=== PATIENT | male | born 1960 | race Caucasian/White ===

== ENCOUNTER 2017-07-22 15:50 | Emergency (ER) | payer OTHER ==
[~2017-07-22] VITALS: Ht 177.8 cm; Wt 90.7 kg
--- OUTSIDE RECORDS SUMMARY | 2017-07-22 15:56 | XMS REPORT ---
Author Author HILARIO SABINA Organization [facility] [place] Address [address] [place] [address] Care Team Providers Care Manager Process Name Role Phone CHATA RICHE Unavailable PROBLEMS Type Condition ICD9-CM Code IIH70-LN Code Onset Dates Condition Status SNOMED Code Problem Dental caries, unspecified K02.9 Active 98481018 Problem Establishing care with new doctor, encounter for Z71.89 Active 271306076 Problem Glucosuria R81 Active 31957027 Assessment Primary insomnia F51.01 Jul, Active 7938529 Assessment Essential hypertension I10 Jul, Active 50950011 Problem Essential hypertension I10 Active 83475724 Problem Alcoholism F10.20 Active 1574224 Problem Chronic obstructive pulmonary disease, unspecified COPD type J44.9 Active 24778723 Problem Chronic pain syndrome G89.4 Active 991649952 Problem Mild depression F32.0 Active 818087034 Problem Mild intermittent asthma without complication J45.20 Active 253645835 ALLERGIES Substance Reaction Event Type Date Status N.K.D.A. Unknown Non Drug Allergy Jul, Unknown SOCIAL HISTORY No smoking Hx information available PLAN OF CARE VITAL SIGNS Height 68.0 in 2016-07-07 Weight 200.7 lbs 2016-07-07 Heart Rate 82 bpm 2016-07-07 Respiratory Rate 20 2016-07-07 BMI 30.51 kg/m2 2016-07-07 Blood pressure systolic 152 mmHg 2016-07-07 Blood pressure diastolic 92 mmHg 2016-07-07 MEDICATIONS Medication Instructions Dosage Frequency Start Date End Date Duration Status Proventil HFA 108 (90 Base) MCG/ACT Inhalation every 4 hrs 2 puffs as needed 4h May, Active Mirtazapine 30 MG Orally Once a day 1 tablet before bedtime in the evening 24h Jul, 30 day(s) Active Ibuprofen 800 MG Orally Three times a day 1 tablet 8h May, Active Lisinopril 10 mg Orally Once a day 1 tablet 24h May, Active Clindamycin HCl 300 MG Orally every 8 hrs 1 capsule 8h Jul,Jul 10 days Active RESULTS No Results PROCEDURES Procedure Date Ordered Related Diagnosis Body Site Office Visit, Est Pt., Level 4 Jul 07, 2016 IMMUNIZATIONS No Known Immunizations
--- OUTSIDE RECORDS SUMMARY | 2017-07-22 15:56 | XMS REPORT ---
Author SHAYAN Ye e[employer] Address Unknown Phone Unavailable Care Team Providers Care Adjunct Trainer Name Role Phone SHAYAN PALACIOS CP Unavailable Allergies, Adverse Reactions, Alerts Substance Reaction Event Type N.K.D.A. Info Not Available Non Drug Allergy Problems Problem Type Condition Code Onset Dates Condition Status Assessment Dental caries K02.9 Active Problem Glucosuria R81 Active Problem Dental caries, unspecified K02.9 Active Problem Alcoholism F10.20 Active Problem Mild depression F32.0 Active Problem Essential hypertension I10 Active Problem Chronic pain syndrome G89.4 Active Problem Establishing care with new doctor, encounter for Z71.89 Active Problem Mild intermittent asthma without complication J45.20 Active Problem Chronic obstructive pulmonary disease, unspecified COPD type J44.9 Active Medications Medication Code System Code Instructions Start Date End Date Status Dosage Mirtazapine [facility] [address]-80 30 MG Orally Once a day Jul 07, 2016 1 tablet before bedtime in the evening Ibuprofen [facility] [address]-77 800 MG Orally Three times a day Jun 09, 2016 1 tablet Proventil HFA [facility] [address]-93 108 (90 Base) MCG/ACT Inhalation every 4 hrs Jun 09, 2016 2 puffs as needed Lisinopril [facility] [address]-80 10 mg Orally Once a day Jun 09, 2016 1 tablet Procedures Procedure Coding System Code Date EXTRAC ERUPTED TOOTH/EXPOSED ROOT CPT-4 D7140 Aug 30, 2016 EXTRAC ERUPTED TOOTH/EXPOSED ROOT CPT-4 D7140 Aug 30, 2016 EXTRAC ERUPTED TOOTH/EXPOSED ROOT CPT-4 D7140 Aug 30, 2016 EXTRAC ERUPTED TOOTH/EXPOSED ROOT CPT-4 D7140 Aug 30, 2016 EXTRAC ERUPTED TOOTH/EXPOSED ROOT CPT-4 D7140 Aug 30, 2016 EXTRAC ERUPTED TOOTH/EXPOSED ROOT CPT-4 D7140 Aug 30, 2016 EXTRAC ERUPTED TOOTH/EXPOSED ROOT CPT-4 D7140 Aug 30, 2016 Vital Signs Date/Time: Aug 30, 2016 Blood Pressure Diastolic 94 mmHg Blood Pressure Systolic 169 mmHg Height 68.0 in Results No Known Results Summary Purpose eClinicalWorks Submission
--- OUTSIDE RECORDS SUMMARY | 2017-07-22 15:56 | XMS REPORT ---
Author SHAYAN Ye e[employer] Address Unknown Phone Unavailable Care Team Providers Care Steward/[employer] Name Role Phone SHAYAN PALACIOS CP Unavailable [...] disease, unspecified COPD type J44.9 Active Medications No Known Medications Procedures Procedure Coding System Code Date EXTRAC ERUPTED TOOTH/EXPOSED ROOT CPT-4 D7140 Aug 09, 2016 EXTRAC ERUPTED TOOTH/EXPOSED ROOT CPT-4 D7140 Aug 09, 2016 EXTRAC ERUPTED TOOTH/EXPOSED ROOT CPT-4 D7140 Aug 09, 2016 EXTRAC ERUPTED TOOTH/EXPOSED ROOT CPT-4 D7140 Aug 09, 2016 EXTRAC ERUPTED TOOTH/EXPOSED ROOT CPT-4 D7140 Aug 09, 2016 EXTRAC ERUPTED TOOTH/EXPOSED ROOT CPT-4 D7140 Aug 09, 2016 Vital Signs Date/Time: Aug 09, 2016 Blood Pressure Diastolic 116 mmHg Blood Pressure Systolic 165 mmHg Height 68.0 in Results No Known Results Summary Purpose eClinicalWorks Submission
--- OUTSIDE RECORDS SUMMARY | 2017-07-22 15:56 | XMS REPORT ---
Author Author SABINA RICH [facility] [place] eClinical[employer] Address Unknown Phone Unavailable Care Team Providers Care Sole Blacker Name Role Phone SABINA RICH CP Unavailable Allergies No Known Allergies Problems Problem Type Condition Code Onset Dates Condition Status Problem Glucosuria R81 Active Problem Dental caries, [...] Instructions Start Date End Date Status Dosage Ibuprofen [facility] [address]-08 800 MG Orally Three times a day Jun 09, 2016 1 tablet Results No Known Results Summary Purpose eClinicalWorks Submission
--- OUTSIDE RECORDS SUMMARY | 2017-07-22 15:56 | XMS REPORT ---
Author Author SABINA RICH [facility] eClinicalWorks Address Unknown Phone Unavailable Care Team Providers Care Flame Gouger Name Role Phone SABINA RICH CP Unavailable [...] Start Date End Date Status Dosage Ibuprofen [facility] [address]-03 200 mg Orally every 6 hrs 1 tablet as needed Results No Known Results Summary Purpose eClinicalWorks Submission
--- OUTSIDE RECORDS SUMMARY | 2017-07-22 15:56 | XMS REPORT ---
Author Author JOSE ANGEL REIS Organization [employer] Address Unknown Phone Unavailable Care Team Providers Care Computed Tomography Technician Name Role Phone JOSE ANGEL REIS CP Unavailable Allergies, Adverse Reactions, Alerts Substance Reaction Event Type N.K.D.A. Info Not Available Non Drug Allergy Problems Problem Type Condition Code Onset Dates Condition Status Assessment Acute upper respiratory infection, unspecified J06.9 Active Assessment Other viral agents as the cause of diseases classified elsewhere B97.89 Active Medications No Known Medications Procedures Procedure Coding System Code Date Office Visit, New Pt., Level 2 CPT-4 92705 Jun 01, 2016 Vital Signs Date/Time: Jun 01, 2016 Cardiac Monitoring Heart Rate 108 bpm Weight 197.5 lbs Height 68.0 in BMI 30.03 Index Blood Pressure Diastolic 90 mmHg Blood Pressure Systolic 145 mmHg Results No Known Results Summary Purpose eClinicalWorks Submission
[2017-07-22] MEDS ORDERED: ASPIRIN 81 MG CHEW (CHILDREN'S ASA) PO ONE (16:00)
[2017-07-22] MEDS ORDERED: RX-NITROGLYCERIN 0.4 MG TAB BTL 25'S SL PRN (16:00)
[2017-07-22] MEDS ORDERED: RT-ALBUTEROL/IPRATROPIUM 3 ML (DUONEB) VIAL INH ONE (16:00)
[2017-07-22] MEDS ORDERED: meTOprolol 5 MG/5 ML (LOPRESSOR) VIAL IV ONE (16:00)
--- NOTE | 2017-07-22 16:01 | ED Chest Pain ---
General Stated Complaint: CP/L ARM NUMBNESS/WEAKNESS Source: patient Exam Limitations: no limitations History of Present Illness Time seen by provider: 15:57 Initial Comments To ER with reports of chest pain since Tuesday worsened with activity and movement. He's also been very short of breath. He smokes a pack of cigarettes a day. He has not had a cough fevers or chills. No known cardiac history. Pain occasionally radiates down the left arm. Only rates pain at a 3 out of 10 right now. Timing/Duration: 1 week Severity/Quality: moderate Location: central Associated Symptoms: shortness of breath Allergies and Home Medications Allergies Coded Allergies: No Known Drug Allergies (Unverified , 07/22/17) Review of Systems Constitutional: see HPI EENTM: No Symptoms Reported Respiratory: See HPI, Shortness of Air, Wheezing Cardiovascular: See HPI, Chest Pain Gastrointestinal: No Symptoms Reported Genitourinary: No Symptoms Reported Musculoskeletal: no symptoms reported Skin: no symptoms reported Psychiatric/Neurological: No Symptoms Reported Endocrine: No Symptoms Reported Hematologic/Lymphatic: No Symptoms Reported Physical Exam Vital Signs Vital Sign - Last 12Hours 07/22/17 15:50 Temp 98.5 Pulse 115 Resp 20 B/P (MAP) 149/96 Pulse Ox 95 O2 Delivery Room Air Capillary Refill : General Appearance: No Apparent Distress, WD/WN HEENT: PERRL/EOMI, TMs Normal Neck: Full Range of Motion, Normal Inspection Respiratory: No Accessory Muscle Use, No Respiratory Distress, Wheezing Gastrointestinal: Normal Bowel Sounds, Non Tender, Soft Extremity: Normal Capillary Refill, Normal Inspection Neurologic/Psychiatric: Alert, Oriented x3, No Motor/Sensory Deficits Skin: Normal Color, Warm/Dry Progress/Results/Core Measures Results/Orders Lab Results Laboratory Tests Test 07/22/17 16:05 Range/Units White Blood Count 6.8 4.3-11.0 10^3/uL Red Blood Count 5.02 4.35-5.85 10^6/uL Hemoglobin 15.8 13.3-17.7 G/DL Hematocrit 45 40-54 % Mean Corpuscular Volume 89 80-99 FL Mean Corpuscular Hemoglobin 32 25-34 PG Mean Corpuscular Hemoglobin Concent 35 32-36 G/DL Red Cell Distribution Width 12.7 10.0-14.5 % Platelet Count 131 130-400 10^3/uL Mean Platelet Volume 10.3 7.4-10.4 FL Neutrophils (%) (Auto) 71 42-75 % Lymphocytes (%) (Auto) 19 12-44 % Monocytes (%) (Auto) 9 0-12 % Eosinophils (%) (Auto) 1 0-10 % Basophils (%) (Auto) 0 0-10 % Neutrophils # (Auto) 4.9 1.8-7.8 X 10^3 Lymphocytes # (Auto) 1.3 1.0-4.0 X 10^3 Monocytes # (Auto) 0.6 0.0-1.0 X 10^3 Eosinophils # (Auto) 0.1 0.0-0.3 10^3/uL Basophils # (Auto) 0.0 0.0-0.1 10^3/uL Prothrombin Time 12.2 12.2-14.7 SEC INR Comment 0.9 0.8-1.4 Activated Partial Thromboplast Time 26 24-35 SEC Sodium Level 136 135-145 MMOL/L Potassium Level 3.3 L 3.6-5.0 MMOL/L Chloride Level 103 98-107 MMOL/L Carbon Dioxide Level 25 21-32 MMOL/L Anion Gap 8 5-14 MMOL/L Blood Urea Nitrogen 10 7-18 MG/DL Creatinine 0.80 0.60-1.30 MG/DL Estimat Glomerular Filtration Rate > 60 BUN/Creatinine Ratio 13 Glucose Level 111 H 70-105 MG/DL Calcium Level 8.9 8.5-10.1 MG/DL Magnesium Level 1.9 1.8-2.4 MG/DL Total Bilirubin 2.4 H 0.1-1.0 MG/DL Aspartate Amino Transf (AST/SGOT) 17 5-34 U/L Alanine Aminotransferase (ALT/SGPT) 20 0-55 U/L Alkaline Phosphatase 58 40-136 U/L Myoglobin 36.1 10.0-92.0 NG/ML Troponin I < 0.30 <0.30 NG/ML B-Type Natriuretic Peptide 20.1 <100.0 PG/ML Total Protein 7.4 6.4-8.2 GM/DL Albumin 4.2 3.2-4.5 GM/DL My Orders Orders - BRANDON WALTON APRN Ekg Tracing (07/22/17 15:52) Cbc With Automated Diff (07/22/17 15:55) Magnesium (07/22/17 15:55) Chest 1 View, Ap/Pa Only (07/22/17 15:55) Cardiac Profile 1 (07/22/17 15:55) Comprehensive Metabolic Panel (07/22/17 15:55) Myoglobin Serum (07/22/17 15:55) Protime With Inr (07/22/17 15:55) Partial Thromboplastin Time (07/22/17 15:55) O2 (07/22/17 15:55) Monitor-Rhythm Ecg Trace Only (07/22/17 15:55) Lipid Panel (07/23/17 06:00) Saline Lock/Iv-Start (07/22/17 15:55) BNP (07/22/17 15:55) Albuterol/Ipra Inhalation Soln (Duoneb I (07/22/17 16:00) Rx-Nitroglycerin Sl Tabs (Rx-Nitrostat S (07/22/17 16:00) Metoprolol Tartrate Injection (Lopressor (07/22/17 16:00) Aspirin Chewable Tablet (Baby Aspirin Ch (07/22/17 16:00) Svn Sm Volume Nebulizer Rt-Rfs (07/22/17 15:55) Albuterol Pre-Mix Nebs (Rt) (Proventil P (07/22/17 16:15) Methylprednisolone Sod Succ (Solu-Medrol (07/22/17 16:15) Medications Given in ED Current Medications Medications Dose Ordered Sig/Sofiya Route Start Time Stop Time Status Last Admin Dose Admin Albuterol/ Ipratropium 3 ml ONCE ONCE INH 07/22/17 16:00 07/22/17 16:01 DC 07/22/17 16:09 3 ML Aspirin 324 mg ONCE ONCE PO 07/22/17 16:00 07/22/17 16:01 DC 07/22/17 16:17 324 MG Methylprednisolone Sodium Succinate 125 mg ONCE ONCE IVP 07/22/17 16:15 07/22/17 16:16 DC 07/22/17 16:17 125 MG Metoprolol Tartrate 5 mg ONCE ONCE IV 07/22/17 16:00 07/22/17 16:01 DC 07/22/17 16:18 5 MG Vital Signs/I&O Vital Sign - Last 12Hours 07/22/17 07/22/17 07/22/17 07/22/17 15:50 15:50 16:05 16:19 Temp 98.5 Pulse 115 Resp 20 B/P (MAP) 149/96 Pulse Ox 95 96 95 O2 Delivery Room Air Room Air Room Air Diagnostic Imaging Diagonstic Imaging: Xray Plain Films/CT/US/NM/MRI: chest Comments NAME: MELANIA LEON [facility] REC#: [id number] PT STATUS: REG ER : 1960 PHYSICIAN: BRANDON WALTON DRIER AND GRINDER TENDER ADMIT DATE: 07/22/17/ER Draft Date of Exam:07/22/17 CHEST 1 VIEW, AP/PA ONLY INDICATION: Chest pain, left arm numbness. TECHNIQUE: Single view chest, 4:26 p.m. CORRELATION STUDY: None. FINDINGS: Heart size is within normal limits. Central pulmonary arteries are slightly prominent. Lung huntley do appear to be hyperlucent, likely owing to chronic changes of COPD. No infiltrate. IMPRESSION: Negative for acute abnormality in the chest on portable imaging. Lung huntley demonstrate likely change of COPD. Prominent central pulmonary arteries can be associated with pulmonary arterial hypertension. Clinical correlation is recommended. Dictated on workstation # [id number] Dict: 07/22/17 1634 Trans: 07/22/[address] [facility] [id number] Interpreted by: NAGI BOLES DO Electronically signed by: Departure Communication (Admissions) Progress Notes Despite 5 days of continuous chest pain his troponin remains negative and his EKG is without ST segment changes. His pain did improve as did his shortness of breath after DuoNeb treatment. We will discharged home with steroids, inhaler, return precautions, antibiotics. Impression Impression: Primary Impression: COPD exacerbation Disposition: 01 HOME, SELF-CARE Condition: Improved Departure-Patient Inst. Decision time for Depature: 17:03 Referrals: UNKNOWN (PCP/Family) Primary Care Physician Patient Instructions: Chronic Obstructive Pulmonary Disease (COPD), Including Emphysema Add. Discharge Instructions: 1. Return to ER for any worsening 2. Follow-up with your doctor next week 3. Scripts Albuterol Sulfate (PROAIR HFA) 1 Puff Puff 2 PUFF IH Q4H Y for WHEEZING, #1 PUFF 1 PUFF = 90 MCG Prov: BRANDON WALTON APRN 07/22/17 Azithromycin (Azithromycin) 250 Mg Tablet 250 MG PO UD, #6 TAB TAKE 2 TABLETS ON DAY ONE THEN TAKE 1 TABLET DAILY FOR FOUR MORE DAYS Prov: BRANDON WALTON APRN 07/22/17 Prednisone (Prednisone) 20 Mg Tab 40 MG PO DAILY, #8 TAB Prov: BRANDON WALTON APRN 07/22/17 Work/School Note: Work Release Form Date Seen in the Emergency Department: Jul 22, 2017 Return to Work: Jul 25, 2017 BRANDON WALTON APRN Jul 22, 2017 16:01
[2017-07-22] MEDS ORDERED: RT-ALBUTEROL SULF 2.5 MG/3 ML PRE-MIX VIAL IH SCH (16:15)
[2017-07-22] MEDS ORDERED: methylPREDNISolone 125 MG (Solu-MEDROL) VIAL IVP ONE (16:15)
[2017-07-22 16:19] LABS: BASOPHILS % (AUTO) 0 % (0-10); EOSINOPHILS # (AUTO) 0.1 10^3/uL (0.0-0.3); EOSINOPHILS % (AUTO) 1 % (0-10); LYMPHOCYTES # (AUTO) 1.3 X 10^3 (1.0-4.0); LYMPHOCYTES % (AUTO) 19 % (12-44); MEAN CORPUSCULAR HEMOGLOBIN 32 PG (25-34); MEAN CORPUSCULAR HGB CONC 35 G/DL (32-36); MEAN CORPUSCULAR VOLUME 89 FL (80-99); MEAN PLATELET VOLUME 10.3 FL (7.4-10.4); MONOCYTES # (AUTO) 0.6 X 10^3 (0.0-1.0); MONOCYTES % (AUTO) 9 % (0-12); NEUTROPHILS # (AUTO) 4.9 X 10^3 (1.8-7.8); NEUTROPHILS % (AUTO) 71 % (42-75); PLATELET COUNT 131 10^3/uL (130-400); RED BLOOD COUNT 5.02 10^6/uL (4.35-5.85); RED CELL DISTRIBUTION WIDTH 12.7 % (10.0-14.5); WHITE BLOOD COUNT 6.8 10^3/uL (4.3-11.0)
[2017-07-22 16:28] LABS: INR 0.9 (0.8-1.4); PROTHROMBIN TIME PATIENT 12.2 SEC (12.2-14.7)
--- NOTE | 2017-07-22 16:39 | Diagnostic Imaging Report ---
INDICATION: Chest pain, left arm numbness. TECHNIQUE: Single view chest, 4:26 p.m. CORRELATION STUDY: None. FINDINGS: Heart size is within normal limits. Central pulmonary arteries are slightly prominent. Lung huntley do appear to be hyperlucent, likely owing to chronic changes of COPD. No infiltrate. IMPRESSION: Negative for acute abnormality in the chest on portable imaging. Lung huntley demonstrate likely change of COPD. Prominent central pulmonary arteries can be associated with pulmonary arterial hypertension. Clinical correlation is recommended. Dictated by: Dictated on workstation # [id number]
[2017-07-22 16:48] LABS: ALANINE AMINOTRANSFERASE 20 U/L (0-55); ALBUMIN 4.2 GM/DL (3.2-4.5); ANION GAP 8 MMOL/L (5-14); ASPARTATE AMINO TRANSFERASE 17 U/L (5-34); BILIRUBIN,TOTAL 2.4 MG/DL (0.1-1.0); BLOOD UREA NITROGEN 10 MG/DL (7-18); BUN/CREATININE RATIO 13; CALCIUM 8.9 MG/DL (8.5-10.1); CARBON DIOXIDE 25 MMOL/L (21-32); CHLORIDE 103 MMOL/L (98-107); GFR ESTIMATED > 60; GLUCOSE 111 MG/DL (70-105); MAGNESIUM 1.9 MG/DL (1.8-2.4); POTASSIUM 3.3 MMOL/L (3.6-5.0); SODIUM 136 MMOL/L (135-145); TOTAL PROTEIN 7.4 GM/DL (6.4-8.2)
[2017-07-22 16:56] LABS: MYOGLOBIN SERUM 36.1 NG/ML (10.0-92.0)
[2017-07-22] MEDS ORDERED: RT-ALBUINH IH (17:05)
[2017-07-22] MEDS ORDERED: AZIT250T12 PO (17:05)
[2017-07-22] MEDS ORDERED: PRD20T PO (17:05)
[2017-07-22 17:10] VITALS: BP 113/84
== END 2017-07-22 17:10 | disposition home or self-care (01) ==
LOC: EDUNIT# 15:50 → ER 15:52
DX: J44.1 Chronic obstructive pulmonary disease with (acute) exacerbation (principal); F17.210 Nicotine dependence, cigarettes, uncomplicated
CPT/HCPCS: 36415; 71010; 80053; 83735; 83874; 83880; 84484; 85025; 85610; 85730; 93005; 93041; 94640; 96374; 96375

== ENCOUNTER → 2018-11-24 | Outpatient (CLI) | payer OTHER ==
[~2018-11-24] MED LIST: AZIT250T12 PO; PRD20T PO; RECEIVED CONTRAST (Hold Metformin) IV SCH; RT-ALBUINH IH
[2018-11-24] MEDS: NS 100 ML (IVPB) BAG IV ONE (12:43)
[2018-11-24] MEDS: IOHEXOL 350 MG/ML 100 ML (OMNIPAQUE 350) VIAL IV ONE (12:43)
[2018-11-24] MEDS: CATHETER FLUSH 10 ML SYR IV PRN (12:43)
--- NOTE | 2018-11-24 13:27 | Diagnostic Imaging Report ---
PROCEDURE: CT chest with contrast only. TECHNIQUE: Multiple contiguous axial images were obtained through the chest after administration of intravenous contrast. INDICATION: Prominent pulmonary arteries. Study is performed for further evaluation. COMPARISON: Correlation is made with chest radiograph from 07/22/2017. FINDINGS: No axillary lymphadenopathy is identified. No hilar or mediastinal lymphadenopathy is seen. No pericardial or pleural fluid is detected. There is a somewhat lobulated soft tissue density identified in the medial right upper lobe at the level of the ascending thoracic aorta. This measures approximately 3.7 x 3.8 cm. This is concerning for a lung mass. Remainder of the lung huntley are clear. Upper abdomen does show some mild nodular enlargement to the left adrenal gland. No other significant abnormality is seen. IMPRESSION: 1. Somewhat irregular soft tissue masslike density in the right upper lobe. PET imaging would be recommended for further evaluation. No definite hilar or mediastinal lymphadenopathy is detected. 2. Nonspecific mild nodular enlargement to the left adrenal gland. Dictated by: Dictated on workstation # [id number]
== END ==
LOC: RAD 12:20
PROVIDERS: ATTEND Nurse Practitioner Family
DX: J98.4 Other disorders of lung (principal); E27.8 Other specified disorders of adrenal gland; R91.8 Other nonspecific abnormal finding of lung field
CPT/HCPCS: 71260

== ENCOUNTER → 2018-12-05 | Outpatient (CLI) | payer OTHER ==
[~2018-12-05] MED LIST changes: -RECEIVED CONTRAST (Hold Metformin) IV SCH
--- NOTE | 2018-12-05 14:57 | Diagnostic Imaging Report ---
INDICATION: Right lung mass. TECHNIQUE: Serum blood glucose level at the time of injection is 107 mg/dL. The patient was administered 14.4 mCi of F18 FDG intravenously in the right antecubital location. PET imaging was performed from the top of the skull to the mid thighs. Noncontrast CT was also performed for attenuation correction and anatomic correlation. COMPARISON: No prior PET studies are available for comparison. Comparison is made with recent CT chest performed 11/24/2018. FINDINGS: There is symmetric activity throughout the brain. Soft tissues of the neck are unremarkable. Imaging through the chest does show a hypermetabolic mass in the right upper lobe adjacent to the right hilum corresponding with the recent CT. This demonstrates SUV max of approximately 14.9. No other regions of hypermetabolism in the chest are identified. Specifically, no hilar or mediastinal hypermetabolism is seen. Abdomen and pelvis demonstrates physiologic activity throughout the GI and tracts. No suspicious hypermetabolism is identified. IMPRESSION: Hypermetabolic mass in the right upper lobe adjacent to the right hilum corresponding to the CT chest abnormality. Features are most suggestive of primary bronchogenic carcinoma. No findings to suggest metastatic disease are identified. Dictated by: Dictated on workstation # [id number]
== END ==
LOC: RAD 10:10
PROVIDERS: ATTEND Nurse Practitioner Family
DX: R92.8 Other abnormal and inconclusive findings on diagnostic imaging of breast (principal)

== ENCOUNTER 2018-12-13 08:18 | Outpatient (CLI) | payer OTHER ==
[~2018-12-13] VITALS: Ht 177.8 cm; Wt 99.8 kg
[2018-12-13] VITALS (17 sets, daily range): BP systolic 147–178; BP diastolic 85–109
[2018-12-13] MEDS ORDERED: NS IV 1000 ML 1,000 ML IV STA (08:28)
[2018-12-13] MEDS ORDERED: LIDOCAINE 1% INJ 20 ML 20 ML VIAL INJ ONE (08:30)
[2018-12-13] MEDS ORDERED: MIDAZOLAM 2 MG/2 ML (VERSED) VIAL IVP ONE (08:30)
[2018-12-13] MEDS ORDERED: fentaNYL INJECTION 100 MCG/2 ML AMP IVP ONE (08:30)
[2018-12-13 08:50] LABS: HEMOGLOBIN 14.6 G/DL (13.3-17.7); MEAN PLATELET VOLUME 9.3 FL (7.4-10.4); RED CELL DISTRIBUTION WIDTH 14.2 % (10.0-14.5); WHITE BLOOD COUNT 7.2 10^3/uL (4.3-11.0)
[2018-12-13 09:03] LABS: INR 0.9 (0.8-1.4); PROTHROMBIN TIME PATIENT 12.1 SEC (12.2-14.7)
[2018-12-13] MEDS ORDERED: HYDROcodone/APAP 5 MG/325 MG (LORTAB) TAB PO PRN (10:45)
--- NOTE | 2018-12-13 10:58 | Pre-Op Note & Conscious Sedat ---
Pre-Operative Progress Note H&P Reviewed The H&P was reviewed, patient examined and no changes noted. Date H&P Reviewed: Dec 13, 2018 Time H&P Reviewed: 09:00 Pre-Op Diagnosis: Lung mass Conscious Sedation Pre-Proced Time 09:00 ASA Score 2 For ASA 3 and 4: Consider anesthesia and medical clearance. Also, for patients with a history of failed moderate sedation consider anesthesia. Airway Lungs Heart ASA score ASA 1: a normal healthy patient ASA 2: a patient with a mild systemic disease (mid diabetes, controlled hypertension, obesity ASA 3: a patient with a severe systemic disease that limits activity (angina , COPD, prior Myocardial infarction) ASA 4: a patient with an incapacitating disease that is a constant threat to life (CHF, renal failure) ASA 5: a moribund patient not expected to survive 24 hrs. (ruptured aneurysm) ASA 6: a declared brain- patient whose organs are being harvested. For emergent operations, add the letter E after the classification Mallampati Classification Grade 2 Sedation Plan Analgesia, Amnesia, Plan communicated to team members, Discussed options with patient/fam, Discussed risks with patient/fam The patient is an appropriate candidate to undergo the planned procedure, sedation, and anesthesia. The patient immediately re-assessed prior to indication. JANINA CLEMENTS MD Dec 13, 2018 10:58
--- NOTE | 2018-12-13 11:11 | Diagnostic Imaging Report ---
INDICATION: Right lung mass. Patient presents for CT-guided biopsy. FINDINGS: Informed written consent was obtained from the patient. Patient was brought to the CT suite, placed on the table in the supine position. Axial imaging through the chest was performed to evaluate appropriate entry site. Procedure was performed utilizing conscious sedation with radiology nursing and constant patient monitoring. Patient was given a total of 0.5 mg of Versed and 50 mcg of fentanyl intravenously. Total procedure time was 13 minutes. Right chest was prepped and draped in the usual sterile fashion. Small amount of 1% lidocaine was utilized for local anesthesia. 20-gauge Temno coaxial needle was advanced and placed with its tip within the inferior aspect of the mass in the right upper lobe. A total of three core biopsies were obtained. Patient did develop very small anterior pneumothorax. A blood patch was injected during needle removal. Hemostasis was obtained using manual compression. Patient tolerated the procedure well and left the department in stable condition. IMPRESSION: Successful CT-guided core biopsy of the right upper lobe mass, utilizing conscious sedation. The patient did develop very small right-sided pneumothorax which will be followed with chest radiographs. Pathology results are currently pending. Dictated by: Dictated on workstation # [id number]
--- NOTE | 2018-12-13 12:56 | Diagnostic Imaging Report ---
INDICATION: Right lung biopsy. Time of exam 12:08PM Expiration portable radiograph of the chest was performed. There is a very small right sided pneumothorax, less than 10%. Right perihilar mass is again noted. The lungs are otherwise clear. No effusion is seen. IMPRESSION: Small right-sided pneumothorax. Dictated by: Dictated on workstation # [id number]
== END 2018-12-13 14:35 | disposition home or self-care (01) ==
LOC: SDC 08:18
PROVIDERS: ATTEND Nurse Practitioner Family
DX: C34.11 Malignant neoplasm of upper lobe, right bronchus or lung (principal); J95.811 Postprocedural pneumothorax
CPT/HCPCS: 36415; 71045; 77012; 85027; 85610; 85730; 88305; 88344; 99156

== ENCOUNTER 2018-12-20 14:41 | Outpatient (RCR) | payer MEDICAID, OTHER ==
[2018-12-26] MEDS ORDERED: BACL20TA PO (18:21)
[2018-12-26] MEDS ORDERED: DULO30CA48 PO (18:21)
[2018-12-26] MEDS ORDERED: TIOT18CA2 IH (18:21)
[2018-12-26] MEDS ORDERED: BUPR150T7 PO (18:21)
[2018-12-26] MEDS ORDERED: IBUP-1773 PO (18:21)
[2018-12-26] MEDS ORDERED: METO-333 PO (18:21)
[2018-12-26] MEDS ORDERED: LISI-552 PO (18:21)
[2018-12-26] MEDS ORDERED: PRD10T PO (18:21)
[2018-12-26] MEDS ORDERED: NICO-588 TD (18:21)
[2018-12-27] MEDS ORDERED: ALBU6.7H8 INH (09:32)
[2018-12-29] MEDS ORDERED: PRED10TA22 PO (09:26)
[2018-12-29] MEDS ORDERED: ACHD5005 PO (09:26)
== END 2019-03-20 | disposition home or self-care (01) ==
LOC: ONC 14:41
PROVIDERS: ATTEND Internal Medicine Hematology & Oncology
DX: C34.11 Malignant neoplasm of upper lobe, right bronchus or lung (principal); J44.9 Chronic obstructive pulmonary disease, unspecified; I10 Essential (primary) hypertension; F17.210 Nicotine dependence, cigarettes, uncomplicated
CPT/HCPCS: 99214

== ENCOUNTER 2018-12-26 11:27 | Inpatient (IN) | payer OTHER ==
[~2018-12-26] VITALS: Ht 177.8 cm; Wt 102.7 kg
[2018-12-26] VITALS (15 sets, daily range): BP systolic 144–183; BP diastolic 87–113
[~2018-12-26 11:27] MED LIST changes: -ALBU6.7H8 INH; -BACL20TA PO; -BUPR150T7 PO; -DULO30CA48 PO; -IBUP-1773 PO; -LIDOCAINE 1% INJ 20 ML 20 ML VIAL ONE; -LISI-552 PO; -METO-333 PO; -MIDAZOLAM 2 MG/2 ML (VERSED) VIAL ONE; -NICO-588 TD; -PRD10T PO; -TIOT18CA2 IH; -fentaNYL INJECTION 100 MCG/2 ML AMP ONE
[2018-12-26] MEDS ORDERED: RT-ALBUTEROL/IPRATROPIUM 3 ML (DUONEB) VIAL IH PRN (17:00)
[2018-12-26] MEDS ORDERED: CATHETER FLUSH 10 ML SYR IV PRN (17:00)
[2018-12-26] MEDS ORDERED: FLU QUADRIvalent (5+ YOA) 2018-2019 (AFLURIA) 0.5 ML IM ONE (17:15)
[2018-12-26] MEDS: FAMOTIDINE 20 MG (PEPCID) TABLET PO SCH (17:36)
[2018-12-26] MEDS: NS IV 1000 ML 1,000 ML IV SCH (17:36)
[2018-12-26] MEDS: methylPREDNISolone 40 MG/ML (Solu-MEDROL) VIAL IV SCH (17:39)
[2018-12-26 17:41] LABS: BASOPHILS % (AUTO) 0 % (0-10); EOSINOPHILS % (AUTO) 0 % (0-10); HEMATOCRIT 45 % (40-54); HEMOGLOBIN 15.4 G/DL (13.3-17.7); LYMPHOCYTES # (AUTO) 0.6 X 10^3 (1.0-4.0); LYMPHOCYTES % (AUTO) 6 % (12-44); MEAN CORPUSCULAR HEMOGLOBIN 31 PG (25-34); MEAN CORPUSCULAR HGB CONC 35 G/DL (32-36); MEAN CORPUSCULAR VOLUME 91 FL (80-99); MEAN PLATELET VOLUME 10.4 FL (7.4-10.4); MONOCYTES # (AUTO) 0.1 X 10^3 (0.0-1.0); MONOCYTES % (AUTO) 1 % (0-12); NEUTROPHILS # (AUTO) 8.3 X 10^3 (1.8-7.8); NEUTROPHILS % (AUTO) 93 % (42-75); PLATELET COUNT 173 10^3/uL (130-400); RED CELL DISTRIBUTION WIDTH 13.8 % (10.0-14.5)
--- NOTE | 2018-12-26 17:48 | Diagnostic Imaging Report ---
INDICATION: Follow-up pneumothorax. COMPARISON: Earlier same day. FINDINGS: Single frontal radiographic view of the chest was obtained and demonstrates residual mild right-sided pneumothorax. Pneumothorax measures approximately 2.3 cm in lateral depth. This is stable compared to earlier same day. Cardiomediastinal structures are midline without evidence of shift. There is no pneumothorax on the left. No large effusion is seen on either side. There is no new focal alveolar consolidation. Right hilar mass is again noted. IMPRESSION: 1. Stable mild right-sided pneumothorax. 2. Redemonstration of right perihilar mass. Dictated by: Dictated on workstation # [id number]
[2018-12-26 18:02] LABS: ALANINE AMINOTRANSFERASE 20 U/L (0-55); ALBUMIN 4.5 GM/DL (3.2-4.5); ALKALINE PHOSPHATASE 55 U/L (40-136); BAND NEUTROPHILS 0 %; BILIRUBIN,TOTAL 0.6 MG/DL (0.1-1.0); BUN/CREATININE RATIO 15; CALCIUM 9.3 MG/DL (8.5-10.1); CARBON DIOXIDE 24 MMOL/L (21-32); CHLORIDE 104 MMOL/L (98-107); CREATININE SERUM 0.89 MG/DL (0.60-1.30); GFR ESTIMATED > 60; GLUCOSE 119 MG/DL (70-105); LYMPHOCYTES % (MANUAL) 6 %; MAGNESIUM 2.1 MG/DL (1.8-2.4); NEUTROPHILS % (MANUAL) 91 %; PHOSPHORUS 2.8 MG/DL (2.3-4.7); POTASSIUM 4.1 MMOL/L (3.6-5.0); SODIUM 137 MMOL/L (135-145); TOTAL PROTEIN 7.5 GM/DL (6.4-8.2)
[2018-12-26 18:03] LABS: BASOPHILS % (MANUAL) 1 %; EOSINOPHILS % (MANUAL) 0 %; MONOCYTES % (MANUAL) 2 %; RBC MORPH NORMAL
[2018-12-26] MEDS ORDERED: BACL20TA PO (18:21)
[2018-12-26] MEDS ORDERED: BUPR150T7 PO (18:21)
[2018-12-26] MEDS ORDERED: PRD10T PO ×2 (18:21)
[2018-12-26] MEDS ORDERED: TIOT18CA2 IH (18:21)
[2018-12-26] MEDS ORDERED: METO-333 PO (18:21)
[2018-12-26] MEDS ORDERED: LISI-552 PO (18:21)
[2018-12-26] MEDS ORDERED: DULO30CA48 PO (18:21)
[2018-12-26] MEDS ORDERED: NICO-588 TD (18:21)
[2018-12-26] MEDS ORDERED: IBUP-1773 PO (18:21)
[2018-12-26] MEDS: RT-ALBUTEROL/IPRATROPIUM 3 ML (DUONEB) VIAL IH SCH ×2 (19:48→23:41)
[2018-12-26] MEDS ORDERED: MELATONIN 3 MG TABLET PO PRN (20:30)
[2018-12-26] MEDS ORDERED: ACETAMINOPHEN 500 MG TAB (TYLENOL) PO PRN (20:30)
[2018-12-26] MEDS ORDERED: ONDANSETRON 4 MG (ZOFRAN) ORAL DISSOLVE TAB PO PRN (20:30)
[2018-12-26] MEDS ORDERED: fentaNYL INJECTION 100 MCG/2 ML AMP IVP PRN (20:30)
[2018-12-26] MEDS ORDERED: LOPERAMIDE 2 MG (IMODIUM) CAP PO PRN (20:30)
[2018-12-26] MEDS ORDERED: DOCUSATE SODIUM 100 MG (COLACE) CAP PO PRN (20:30)
[2018-12-26] MEDS ORDERED: diphenhydrAMINE 25 MG TAB (BENADRYL) PO PRN (20:30)
[2018-12-26] MEDS ORDERED: ONDANSETRON 4 MG/2 ML (SDV) Z0FRAN IVP PRN (20:30)
[2018-12-26] MEDS ORDERED: IBUPROFEN TABLET 200 MG TAB PO PRN (20:30)
[2018-12-26] MEDS ORDERED: ALPRAZolam 0.25 MG (XANAX) TAB PO PRN (20:30)
[2018-12-26] MEDS ORDERED: CALCIUM CARBONATE 500 MG (TUMS) TAB.CHEW PO PRN (20:30)
[2018-12-26] MEDS ORDERED: meTOprolol TARTRATE 25 MG (LOPRESSOR) TABLET PO ONE (21:15)
[2018-12-26] MEDS ORDERED: lisINopril 40 MG (PRINIVIL) TABLET PO ONE (21:15)
[2018-12-26] MEDS: HYDROcodone/APAP 5 MG/325 MG (LORTAB) TAB PO PRN (21:48)
[2018-12-26] MEDS: guaiFENesin/CODEINE (ROBITUSSIN AC) 10ML UDC PO PRN (22:23)
[2018-12-26] MEDS: meTOprolol TARTRATE 25 MG (LOPRESSOR) TABLET PO SCH (22:25)
[2018-12-26] MEDS: lisINopril 20 MG (PRINIVIL) TABLET PO SCH (22:37)
[2018-12-27] VITALS (21 sets, daily range): BP systolic 132–180; BP diastolic 81–114
[2018-12-27] MEDS: methylPREDNISolone 40 MG/ML (Solu-MEDROL) VIAL IV SCH ×4 (01:02→17:59)
[2018-12-27] MEDS: NS IV 1000 ML 1,000 ML IV SCH ×3 (01:02→19:10)
[2018-12-27] MEDS: RT-ALBUTEROL/IPRATROPIUM 3 ML (DUONEB) VIAL IH SCH ×6 (02:45→23:16)
[2018-12-27] MEDS: guaiFENesin/CODEINE (ROBITUSSIN AC) 10ML UDC PO PRN (03:01)
[2018-12-27 03:37] LABS: BASOPHILS % (AUTO) 0 % (0-10); EOSINOPHILS % (AUTO) 0 % (0-10); HEMATOCRIT 44 % (40-54); HEMOGLOBIN 14.9 G/DL (13.3-17.7); LYMPHOCYTES # (AUTO) 0.6 X 10^3 (1.0-4.0); LYMPHOCYTES % (AUTO) 9 % (12-44); MEAN CORPUSCULAR HEMOGLOBIN 31 PG (25-34); MEAN CORPUSCULAR HGB CONC 34 G/DL (32-36); MEAN CORPUSCULAR VOLUME 92 FL (80-99); MEAN PLATELET VOLUME 10.4 FL (7.4-10.4); MONOCYTES # (AUTO) 0.1 X 10^3 (0.0-1.0); MONOCYTES % (AUTO) 2 % (0-12); NEUTROPHILS % (AUTO) 89 % (42-75); PLATELET COUNT 172 10^3/uL (130-400); RED CELL DISTRIBUTION WIDTH 13.8 % (10.0-14.5); WHITE BLOOD COUNT 6.7 10^3/uL (4.3-11.0)
[2018-12-27 03:54] LABS: BUN/CREATININE RATIO 16; CALCIUM 9.1 MG/DL (8.5-10.1); CARBON DIOXIDE 20 MMOL/L (21-32); CHLORIDE 105 MMOL/L (98-107); CREATININE SERUM 0.96 MG/DL (0.60-1.30); GFR ESTIMATED > 60; GLUCOSE 228 MG/DL (70-105); MAGNESIUM 2.4 MG/DL (1.8-2.4); PHOSPHORUS 2.5 MG/DL (2.3-4.7); POTASSIUM 3.8 MMOL/L (3.6-5.0); SODIUM 139 MMOL/L (135-145)
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
[2018-12-27] MEDS ORDERED: KCL 20 MEQ TAB (K-DUR) PO SCH (06:00)
[2018-12-27] MEDS ORDERED: POTASSIUM CL 10MEQ/50ML IVPB 50 ML IV SCH (06:00)
[2018-12-27] MEDS ORDERED: MAGNESIUM 1 GM/100 ML IVPB 100 ML IV SCH (06:00)
[2018-12-27] MEDS: FAMOTIDINE 20 MG (PEPCID) TABLET PO SCH (07:03)
[2018-12-27] MEDS: lisINopril 20 MG (PRINIVIL) TABLET PO SCH (07:32)
[2018-12-27] MEDS: meTOprolol TARTRATE 25 MG (LOPRESSOR) TABLET PO SCH ×2 (07:32→20:26)
--- NOTE | 2018-12-27 07:55 | Diagnostic Imaging Report ---
INDICATION: Dyspnea, followup pneumothorax. COMPARISON: 12/26/2018 at 4:51 PM. FINDINGS: Stable small right-sided pneumothorax. No midline shift. There is a small amount of right-sided perihilar atelectasis and bronchovascular crowding due to the pneumothorax. Underlying mass is also present. Left lung remains clear. No pleural effusion. Stable cardiomediastinal silhouette. IMPRESSION: 1. Stable small right pneumothorax. 2. Unchanged right perihilar masslike opacity. Dictated by: Dictated on workstation # [id number]
[2018-12-27] MEDS ORDERED: MIDAZOLAM 5 MG/5 ML (VERSED) VIAL ONE (09:21)
--- NOTE | 2018-12-27 09:21 | History & Physical-Hospitalist ---
History of Present Illness HPI/Chief Complaint CC: Left sided pneumothorax HPI: This is a 58-year-old white male that was admitted to the ICU for right sided pneumothorax following a CT-guided lung biopsy and was monitor closely. He was just diagnosed with lung cancer and smoking cessation was counseled. He is just returned from a procedure of right sided chest tube and is currently doing well. He does have a cough with wheezing and shortness of breath and I informed him we will start his home medications. Source: patient, family, RN/MD, old records Exam Limitations: no limitations Date Seen 12/27/18 Time Seen by a Provider: 09:30 Attending Physician Karin Kumar DO PCP [facility] Referring Physician Date of Admission Dec 26, 2018 at 16:39 Home Medications & Allergies Home Medications Reviewed patient Home Medication Reconciliation performed by pharmacy medication reconciliations film laboratory technician and/or nursing. Patients Allergies have been reviewed. 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) Alcohol Use: Denies Use Recreational Drug Use: No Smoking Status: Current Everyday Smoker Type Used: Cigarettes Physical Abuse Screen: No Sexual Abuse: No Recent Foreign Travel: No Contact w/other who traveled: No Recent Hopitalizations: No Seasonal Allergies Seasonal Allergies: No Past Medical History Respiratory: COPD Currently Using CPAP: No Currently Using BIPAP: No Cardiac: High Cholesterol, Hypertension Genitourinary: Kidney Stones Musculoskeletal: Arthritis, Back Injury, Chronic Back Pain Hearing Impairment: Hard of Hearing Cancer: Lung Did You Recieve Any Treatments: No Psychosocial: Anxiety, Depression History of Blood Disorders: No Family History Arthritis 19 MOTHER Cardiovascular disease 19 FATHER Cystic fibrosis Diabetes mellitus 19 FATHER 19 MOTHER FH: COPD (chronic obstructive pulmonary disease) 19 MOTHER FH: spinal stenosis 19 MOTHER Kidney disease 19 FATHER Respiratory disorder G8 SISTER Review of Systems Constitutional: see HPI EENTM: no symptoms reported Respiratory: dyspnea on exertion, short of breath, wheezing Cardiovascular: no symptoms reported Gastrointestinal: no symptoms reported Musculoskeletal: no symptoms reported Skin: no symptoms reported Psychiatric/Neurological: No Symptoms Reported All Other Systems Reviewed Negative Unless Noted: Yes Physical Exam Physical Exam Vital Signs Vital Signs - First Documented 12/26/18 12/26/18 12/26/18 12/26/18 16:35 16:40 16:50 17:00 Temp 97.6 Pulse 90 Resp 24 B/P (MAP) 183/113 (136) Pulse Ox 95 O2 Delivery Room Air O2 Flow Rate 2.00 Capillary Refill : Height, Weight, BMI Height: 5'10.00" Weight: 209lbs. 5.0oz. 94.631654kq; 29.9 BMI Method:Stated General Appearance: No Apparent Distress, WD/WN, Chronically ill Eyes: Right Eye Normal Inspection, Right Eye PERRL HEENT: PERRL/EOMI, Normal ENT Inspection, Pharynx Normal, Moist Mucous Membranes Neck: Full Range of Motion, Normal Inspection, Non Tender Respiratory: Chest Non Tender, No Accessory Muscle Use, No Respiratory Distress , Crackles, Decreased Breath Sounds, Wheezing Cardiovascular: Regular Rate, Rhythm, No Edema, No Gallop, No JVD, No Murmur, Normal Peripheral Pulses Gastrointestinal: Normal Bowel Sounds, No Organomegaly, No Pulsatile Mass, Non Tender, Soft Back: Normal Inspection, No CVA Tenderness, No Vertebral Tenderness Extremity: Normal Capillary Refill, Normal Inspection, Normal Range of Motion, Non Tender, No Calf Tenderness, No Pedal Edema Neurologic/Psychiatric: Alert, Oriented x3, No Motor/Sensory Deficits, Normal Mood/Affect Skin: Normal Color, Warm/Dry Lymphatic: No Adenopathy Results Results/Procedures Labs Laboratory Tests 12/26/18 17:30 12/27/18 03:14 Patient resulted labs reviewed. Assessment/Plan Admission Diagnosis Assessment: Right-sided pneumothorax following lung biopsy Lung cancer COPD lying current smoker Hypertension Depression Plan: Chest tube management Pain control Home meds Admission Status: Observation Diagnosis/Problems Diagnosis/Problems (1) Pneumothorax after biopsy Status: Acute (2) COPD (chronic obstructive pulmonary disease) Status: Chronic Qualifiers: COPD type: unspecified COPD Qualified Codes: J44.9 - Chronic obstructive pulmonary disease, unspecified (3) Lung cancer Status: Acute Qualifiers: Laterality: right Lung location: unspecified part of lung Qualified Codes : C34.91 - Malignant neoplasm of unspecified part of right bronchus or lung (4) Smoker Status: Chronic (5) Hypertension Status: Chronic Qualifiers: Hypertension type: essential hypertension Qualified Codes: I10 - Essential (primary) hypertension (6) Depression Status: Chronic Qualifiers: Depression Type: unspecified Qualified Codes: F32.9 - Major depressive disorder, single episode, unspecified Clinical Quality Measures DVT/VTE Risk/Contraindication: Risk Factor Score Per Nursin RFS Level Per Nursing on Admit: 2=Moderate KARIN KUMAR DO Dec 27, 2018 09:21
[2018-12-27] MEDS ORDERED: ALBU6.7H8 INH (09:32)
--- NOTE | 2018-12-27 09:33 | NUR ---
PATIENT HAD HIS MEDICATION BOTTLES WITH HIM AND STATES HE TAKES THEM PRESCRIBED. HE DOES NOT KNOW THEM ALL BY NAME. [facility] DRUG MED BOTTLES HE HAS WITH HIM: 12-26-18 PREDNISONE 10MG #42 6 X 2 DAYS, 5 X2 DAYS, 4 X2 DAYS, 3 X2 DAYS, 2 X2 DAYS, 1 X2 DAYS 12-21-18 LISINOPRIL 20MG DAILY #90 11-22-18 BACLOFEN 20MG BID PRN #40 11-22-18 DULOXETINE 30MG DAILY #30 11-22-18 IBU 600MG TID PRN #90 HE ALSO HAS: NICOTINE PATCH 21MG DAILY SPIRIVA RESPIMAT INHALER PROVENTIL INHALER MED FROM REPOSITORY AT THE MED[facility]: 12-21-18 METOPROLOL TARTRATE 25MG BID #180 12-21-18 BUPROPION XL 150MG DAILY #90
--- NOTE | 2018-12-27 11:10 | NUR ---
Pastoral care visit, provided prayer and support.
[2018-12-27] MEDS: morphine INJ 4 MG/ML 1 ML (VIAL/SYRINGE) IVP PRN ×2 (11:18→14:35)
[2018-12-27] MEDS ORDERED: BACLOFEN 10 MG (LIORESAL) TAB PO PRN (13:00)
[2018-12-27] MEDS: NICOTINE 21 MG (NICODERM) PATCH TD SCH (14:32)
--- NOTE | 2018-12-27 16:08 | Pulmonary Procedures ---
Pulmonary Procedures Date of Procedure Date of Service: Dec 27, 2018 Chest Tube : Chest Tube Position: Right Upper (CT guided Chest tube placed without complications. CT chest repeated to ensure proper placement. ) Chest Tube Location: Mid-Clavicular Chest Size of [place] Tube (cm): 14 Chest Tube Procedure: betadine prep, sterile drapes applied, sterile dressing applied Anesthesia: 1% Lidocaine Volume Anesthetic (ccs): 5 [place] of Air [place]: No Number of Attempts: 1 Tube Drainage: see nurses notes Tube Sutured to Skin: Yes CAROLYN MONDRAGON DO Dec 27, 2018 16:08
[2018-12-27] MEDS ORDERED: hydrALAZINE (APESOLINE) 20 MG/ML VIAL IV PRN (16:30)
--- NOTE | 2018-12-27 16:55 | Diagnostic Imaging Report ---
INDICATION: Pneumothorax. EXAMINATION: Portable upright AP view of the chest was obtained at 1631 hours. FINDINGS: Since the study of earlier in the day, there has been apparent resolution of right pneumothorax. Pneumovent device projects over the right chest wall with increasing right basilar atelectasis. There is no evidence of abnormal increased tension in the right hemithorax. IMPRESSION: Increasing right parahilar and basilar atelectasis with thoracostomy tube device in place. No definite residual pneumothorax is appreciated. Dictated by: Dictated on workstation # [id number]
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
--- NOTE | 2018-12-27 19:28 | NUR ---
REPORT CALLED TO [facility] ON 4TH FLOOR AT THIS TIME.
--- NOTE | 2018-12-27 20:49 | NUR ---
Patient transferred to 4th floor at this time to room 413. Transfer per bed. Transfer uneventful.
[2018-12-27] MEDS: HYDROcodone/APAP 5 MG/325 MG (LORTAB) TAB PO PRN (23:25)
[2018-12-28] VITALS (7 sets, daily range): BP systolic 163–180; BP diastolic 79–99
[2018-12-28] MEDS: methylPREDNISolone 40 MG/ML (Solu-MEDROL) VIAL IV SCH ×3 (00:15→17:57)
[2018-12-28] MEDS: NS IV 1000 ML 1,000 ML IV SCH (01:59)
[2018-12-28] MEDS: RT-ALBUTEROL/IPRATROPIUM 3 ML (DUONEB) VIAL IH SCH ×6 (02:10→21:57)
[2018-12-28 04:28] LABS: BASOPHILS % (AUTO) 0 % (0-10); EOSINOPHILS % (AUTO) 0 % (0-10); HEMATOCRIT 40 % (40-54); HEMOGLOBIN 13.5 G/DL (13.3-17.7); LYMPHOCYTES # (AUTO) 0.3 X 10^3 (1.0-4.0); LYMPHOCYTES % (AUTO) 2 % (12-44); MEAN CORPUSCULAR HEMOGLOBIN 32 PG (25-34); MEAN CORPUSCULAR HGB CONC 34 G/DL (32-36); MEAN CORPUSCULAR VOLUME 93 FL (80-99); MEAN PLATELET VOLUME 10.6 FL (7.4-10.4); MONOCYTES # (AUTO) 0.4 X 10^3 (0.0-1.0); MONOCYTES % (AUTO) 3 % (0-12); NEUTROPHILS # (AUTO) 13.3 X 10^3 (1.8-7.8); NEUTROPHILS % (AUTO) 95 % (42-75); PLATELET COUNT 159 10^3/uL (130-400); RED CELL DISTRIBUTION WIDTH 14.5 % (10.0-14.5)
[2018-12-28 04:58] LABS: BUN/CREATININE RATIO 19; CALCIUM 8.9 MG/DL (8.5-10.1); CARBON DIOXIDE 21 MMOL/L (21-32); CHLORIDE 108 MMOL/L (98-107); CREATININE SERUM 0.86 MG/DL (0.60-1.30); GFR ESTIMATED > 60; GLUCOSE 185 MG/DL (70-105); MAGNESIUM 2.4 MG/DL (1.8-2.4); PHOSPHORUS 2.2 MG/DL (2.3-4.7); POTASSIUM 4.4 MMOL/L (3.6-5.0); SODIUM 140 MMOL/L (135-145)
[2018-12-28] MEDS: HYDROcodone/APAP 5 MG/325 MG (LORTAB) TAB PO PRN ×3 (05:33→20:29)
--- NOTE | 2018-12-28 06:40 | Pulmonary Progress Note ---
Subjective Time Seen by a Provider: 10:15 Subjective/Events-last exam Pt is doing better. Less SOB. Sepsis Event Evaluation Height, Weight, BMI Height: 5'10.00" Weight: 223lbs. 6.0oz. 101.890074sa; 29.9 BMI Method:Stated Exam Exam Vital Signs Date Time Temp Pulse Resp B/P (MAP) Pulse Ox O2 Delivery O2 Flow Rate FiO2 12/28/18 04:00 98.3 84 20 168/83 (111) 95 High Flow N/C 2.00 12/28/18 04:00 Nasal Cannula 2.00 12/28/18 02:11 95 Nasal Cannula 2.00 12/28/18 00:55 96 12/28/18 00:00 99.2 93 20 163/82 (109) 95 High Flow N/C 2.00 12/28/18 00:00 Nasal Cannula 2.00 12/27/18 23:17 95 Nasal Cannula 2.00 12/27/18 20:48 Nasal Cannula 2.00 12/27/18 20:45 99.5 105 20 165/82 (109) 95 Nasal Cannula 2.00 12/27/18 20:15 99.0 118 17 168/93 (118) 92 Room Air 12/27/18 19:00 108 20 153/85 (107) 93 Room Air 12/27/18 19:00 105 12/27/18 18:50 94 Nasal Cannula 2.00 12/27/18 18:00 101 14 180/90 (120) 93 Nasal Cannula 1.00 12/27/18 17:00 101 25 175/87 (116) 92 Nasal Cannula 1.00 12/27/18 16:00 Nasal Cannula 2.00 12/27/18 16:00 97 26 173/114 (133) 92 Nasal Cannula 1.00 12/27/18 15:00 103 24 145/81 (102) 94 Nasal Cannula 1.00 12/27/18 14:00 102 24 141/82 (101) 92 Nasal Cannula 1.00 12/27/18 13:00 96 12/27/18 13:00 96 8 147/84 (105) 92 Nasal Cannula 1.00 12/27/18 12:00 97.8 12/27/18 12:00 Nasal Cannula 2.00 12/27/18 12:00 100 18 139/109 (119) 91 Nasal Cannula 1.00 12/27/18 11:18 89 Room Air 12/27/18 11:00 87 25 147/99 (115) 90 Nasal Cannula 1.00 12/27/18 09:00 77 18 159/86 (110) 89 Nasal Cannula 1.00 12/27/18 08:28 Nasal Cannula 1.00 12/27/18 08:25 95 Nasal Cannula 3.00 12/27/18 08:00 83 18 164/87 (112) 90 Nasal Cannula 3.00 12/27/18 08:00 Nasal Cannula 3.00 12/27/18 07:33 Nasal Cannula 2.00 12/27/18 07:11 82 12/27/18 07:00 85 21 155/90 (111) 92 Nasal Cannula 2.00 12/27/18 07:00 98.6 I & O 12/28/18 07:00 Intake Total 2000 ml Output Total 2025 ml Balance -25 ml Height & Weight Height: 5'10.00" Weight: 223lbs. 6.0oz. 101.537329sd; 29.9 BMI Method:Stated General Appearance: No Apparent Distress, WD/WN, Chronically ill HEENT: PERRL/EOMI, Normal ENT Inspection, Pharynx Normal, Moist Mucous Membranes Neck: Full Range of Motion, Normal Inspection, Non Tender Respiratory: Chest Non Tender, No Accessory Muscle Use, No Respiratory Distress , Crackles, Decreased Breath Sounds, Wheezing Cardiovascular: Regular Rate, Rhythm, No Edema, No Gallop, No JVD, No Murmur, Normal Peripheral Pulses Capillary Refill: Less Than 3 Seconds Gastrointestinal: normal bowel sounds, non tender, soft Extremity: Normal Capillary Refill, Normal Inspection, Normal Range of Motion, Non Tender, No Calf Tenderness, No Pedal Edema Neurologic/Psychiatric: Alert, Oriented x3, No Motor/Sensory Deficits, Normal Mood/Affect Skin: Normal Color, Warm/Dry Lymphatic: No Adenopathy Results Lab Laboratory Tests 12/26/18 17:30 12/27/18 03:14 12/28/18 03:50 Assessment/Plan Assessment/Plan Iatrogenic worsening PTX with SOB -S/P chest tube/thoracic vent. . 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 - Bronch with EBUS is scheduled for next Tue. Atelectasis -IS -increase activity Leukocytosis -Possibly secondary to steroids -Monitor HTN -Monitor CAROLYN MONDRAGON DO Dec 28, 2018 06:40
[2018-12-28] MEDS: UMECLIDINIUM BROMIDE (INCRUSE ELLIPTA) 7'S IH SCH (07:23)
--- NOTE | 2018-12-28 07:55 | Diagnostic Imaging Report ---
INDICATION: Dyspnea. Pneumothorax. Comparison made with prior examination from 12/27/18. FINDINGS: Right thoracostomy tube is in place. Heart size is normal. There is a right hilar mass. There is no pleural effusion. No significant residual pneumothorax. The mediastinum is unremarkable. IMPRESSION: No significant residual pneumothorax. Right hilar mass. Dictated by: Dictated on workstation # [id number]
--- NOTE | 2018-12-28 09:29 | Progress Note-Hospitalist ---
Subjective HPI/CC On Admission Date Seen by Provider: Dec 28, 2018 Time Seen by Provider: 09:00 CC: Left sided pneumothorax HPI: This is a 58-year-old white male that was admitted to the ICU for right sided pneumothorax following a CT-guided lung biopsy and was monitor closely. He was just diagnosed with lung cancer and smoking cessation was counseled. He is just returned from a procedure of right sided chest tube and is currently doing well. He does have a cough with wheezing and shortness of breath and I informed him we will start his home medications. Subjective/Events-last exam Pt doing much better today. Chest tube was discontinued this morning. Repeat chest X-ray today to see if the port of the chest tube can be removed. Will need home oxygen evaluation so I did notify RT. Lungs are improved overall and he is coughing up clear sputum. Review of Systems Pulmonary: Dyspnea Objective Exam Vital Signs Vital Signs Date Time Temp Pulse Resp B/P (MAP) Pulse Ox O2 Delivery O2 Flow Rate FiO2 12/29/18 15:14 12/29/18 12:00 98.3 88 18 95 Room Air 12/28/18 11:23 3.00 Capillary Refill : Less Than 3 Seconds General Appearance: No Apparent Distress, WD/WN, Chronically ill HEENT: PERRL/EOMI, Normal ENT Inspection, Pharynx Normal, Moist Mucous Membranes Neck: Full Range of Motion, Normal Inspection, Non Tender Respiratory: Chest Non Tender, No Accessory Muscle Use, No Respiratory Distress , Crackles, Decreased Breath Sounds, Wheezing Cardiovascular: Regular Rate, Rhythm, No Edema, No Gallop, No JVD, No Murmur, Normal Peripheral Pulses Gastrointestinal: Normal Bowel Sounds, No Organomegaly, No Pulsatile Mass, Non Tender, Soft Back: Normal Inspection, No CVA Tenderness, No Vertebral Tenderness Extremity: Normal Capillary Refill, Normal Inspection, Normal Range of Motion, Non Tender, No Calf Tenderness, No Pedal Edema Neurologic/Psychiatric: Alert, Oriented x3, No Motor/Sensory Deficits, Normal Mood/Affect Skin: Normal Color, Warm/Dry Lymphatic: No Adenopathy Results/Procedures Lab Laboratory Tests 12/29/18 03:50 Patient resulted labs reviewed. Assessment/Plan Assessment and Plan Assess & Plan/Chief Complaint Assessment: PTX right Lung cancer Smoker Plan: Nebs O2 CT Home meds Diagnosis/Problems Diagnosis/Problems (1) Pneumothorax after biopsy Status: Acute (2) COPD (chronic obstructive pulmonary disease) Status: Chronic Qualifiers: COPD type: unspecified COPD Qualified Codes: J44.9 - Chronic obstructive pulmonary disease, unspecified (3) Lung cancer Status: Acute Qualifiers: Laterality: right Lung location: unspecified part of lung Qualified Codes : C34.91 - Malignant neoplasm of unspecified part of right bronchus or lung (4) Smoker Status: Chronic (5) Hypertension Status: Chronic Qualifiers: Hypertension type: essential hypertension Qualified Codes: I10 - Essential (primary) hypertension (6) Depression Status: Chronic Qualifiers: Depression Type: unspecified Qualified Codes: F32.9 - Major depressive disorder, single episode, unspecified Clinical Quality Measures DVT/VTE Risk/Contraindication: Risk Factor Score Per Nursin RFS Level Per Nursing on Admit: 2=Moderate TOMI KO DO Dec 28, 2018 09:29
[2018-12-28] MEDS: meTOprolol TARTRATE 25 MG (LOPRESSOR) TABLET PO SCH ×2 (09:35→20:28)
[2018-12-28] MEDS: FAMOTIDINE 20 MG (PEPCID) TABLET PO SCH (09:35)
[2018-12-28] MEDS: lisINopril 20 MG (PRINIVIL) TABLET PO SCH ×2 (09:35→09:36)
[2018-12-28] MEDS: NICOTINE 21 MG (NICODERM) PATCH TD SCH (09:36)
[2018-12-28] MEDS: DULoxetine 30 MG (CYMBALTA) CAP PO SCH (09:36)
[2018-12-28] MEDS: NICOTINE PATCH REMOVAL TP SCH (09:37)
[2018-12-28] MEDS: buPROPion SR 150 MG (WELLBUTRIN SR) TAB PO SCH (09:53)
--- NOTE | 2018-12-28 11:24 | NUR ---
home oxygen study pt did not desat while walking on room air , no need for oxygen at this time
--- NOTE | 2018-12-28 14:34 | Diagnostic Imaging Report ---
EXAMINATION: Portable erect AP chest at 1:15h. INDICATION: Pneumothorax As noted on the exam performed earlier today at 3:32 AM there is a thoracic vent in place on the right. There is still no evidence for a pneumothorax on the right. The overall appearance of the chest is otherwise stable. The right hilar mass seen previously is again evident and no different. The lungs are generally clear. The heart is unchanged in size. The mediastinum is not widened. The osseous structures are intact. IMPRESSION: Stable chest. There has been no adverse change since the prior exam. In particular there is still no sign of pneumothorax on the right. Dictated by: Dictated on workstation # [id number]
[2018-12-29] MEDS: RT-ALBUTEROL/IPRATROPIUM 3 ML (DUONEB) VIAL IH SCH ×3 (02:51→11:06)
[2018-12-29 03:55] VITALS: BP 167/88
[2018-12-29 04:15] LABS: BASOPHILS % (AUTO) 0 % (0-10); EOSINOPHILS % (AUTO) 0 % (0-10); HEMATOCRIT 41 % (40-54); HEMOGLOBIN 13.5 G/DL (13.3-17.7); LYMPHOCYTES # (AUTO) 0.6 X 10^3 (1.0-4.0); LYMPHOCYTES % (AUTO) 5 % (12-44); MEAN CORPUSCULAR HEMOGLOBIN 31 PG (25-34); MEAN CORPUSCULAR HGB CONC 33 G/DL (32-36); MEAN CORPUSCULAR VOLUME 94 FL (80-99); MEAN PLATELET VOLUME 10.9 FL (7.4-10.4); MONOCYTES # (AUTO) 0.6 X 10^3 (0.0-1.0); MONOCYTES % (AUTO) 5 % (0-12); NEUTROPHILS # (AUTO) 10.8 X 10^3 (1.8-7.8); NEUTROPHILS % (AUTO) 91 % (42-75); PLATELET COUNT 148 10^3/uL (130-400); RED CELL DISTRIBUTION WIDTH 14.3 % (10.0-14.5); WHITE BLOOD COUNT 11.9 10^3/uL (4.3-11.0)
[2018-12-29] MEDS: methylPREDNISolone 40 MG/ML (Solu-MEDROL) VIAL IV SCH (05:12)
--- NOTE | 2018-12-29 06:46 | Pulmonary Progress Note ---
Subjective Time Seen by a Provider: 06:45 Subjective/Events-last exam No complications noted. Sepsis Event Evaluation Height, Weight, BMI Height: 5'10.00" Weight: 226lbs. 7.0oz. 102.019046ft; 29.9 BMI Method:Stated Exam Exam Vital Signs Date Time Temp Pulse Resp B/P (MAP) Pulse Ox O2 Delivery O2 Flow Rate FiO2 12/29/18 03:55 98.6 75 20 167/88 (114) 94 Room Air 12/29/18 02:52 95 Room Air 12/28/18 23:00 97.1 73 20 174/90 (118) 97 Room Air 12/28/18 21:57 93 Room Air 12/28/18 21:00 Room Air 12/28/18 20:00 97.6 87 20 180/99 (126) 96 Room Air 12/28/18 15:39 98.8 97 20 164/86 (112) 97 Room Air 12/28/18 12:00 98.9 105 20 166/79 (108) 93 Room Air 12/28/18 11:23 98 3.00 12/28/18 10:37 98 Nasal Cannula 3.00 12/28/18 10:30 98.6 12/28/18 09:00 96 High Flow N/C 2.00 12/28/18 08:40 98.6 109 22 177/88 (117) 96 High Flow N/C 2.00 12/28/18 07:26 94 12/28/18 07:23 94 Nasal Cannula 1.00 I & O 12/29/18 07:00 Intake Total 2850 ml Output Total 2911 ml Balance -61 ml Height & Weight Height: 5'10.00" Weight: 226lbs. 7.0oz. 102.290070yq; 29.9 BMI Method:Stated General Appearance: No Apparent Distress, WD/WN, Chronically ill HEENT: PERRL/EOMI, Normal ENT Inspection, Pharynx Normal, Moist Mucous Membranes Neck: Full Range of Motion, Normal Inspection, Non Tender Respiratory: Chest Non Tender, No Accessory Muscle Use, No Respiratory Distress , Crackles, Decreased Breath Sounds, Wheezing Cardiovascular: Regular Rate, Rhythm, No Edema, No Gallop, No JVD, No Murmur, Normal Peripheral Pulses Capillary Refill: Less Than 3 Seconds Gastrointestinal: normal bowel sounds, non tender, soft Extremity: Normal Capillary Refill, Normal Inspection, Normal Range of Motion, Non Tender, No Calf Tenderness, No Pedal Edema Neurologic/Psychiatric: Alert, Oriented x3, No Motor/Sensory Deficits, Normal Mood/Affect Skin: Normal Color, Warm/Dry Lymphatic: No Adenopathy Results Lab Laboratory Tests 12/28/18 03:50 12/29/18 03:50 Assessment/Plan Assessment/Plan Iatrogenic worsening PTX with SOB -S/P chest tube/thoracic vent. . -Will D/C Chest tube today. repeat CXR in 4 hours if no PTX pt can go home. -He is scheduled for Bronch with EBUS next tue. 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 - Bronch with EBUS is scheduled for next Tue morning. Atelectasis -IS -increase activity Leukocytosis -Possibly secondary to steroids -Monitor HTN -Monitor CAROLYN MONDRAGON DO Dec 29, 2018 06:46
[2018-12-29] MEDS: UMECLIDINIUM BROMIDE (INCRUSE ELLIPTA) 7'S IH SCH (07:00)
[2018-12-29 08:00] VITALS: BP 187/88
[2018-12-29] MEDS: morphine INJ 4 MG/ML 1 ML (VIAL/SYRINGE) IVP PRN (08:25)
[2018-12-29] MEDS: buPROPion SR 150 MG (WELLBUTRIN SR) TAB PO SCH (08:26)
[2018-12-29] MEDS: NICOTINE 21 MG (NICODERM) PATCH TD SCH (08:26)
[2018-12-29] MEDS: FAMOTIDINE 20 MG (PEPCID) TABLET PO SCH (08:26)
[2018-12-29] MEDS: meTOprolol TARTRATE 25 MG (LOPRESSOR) TABLET PO SCH (08:26)
[2018-12-29] MEDS: DULoxetine 30 MG (CYMBALTA) CAP PO SCH (08:26)
[2018-12-29] MEDS: NICOTINE PATCH REMOVAL TP SCH (08:27)
--- NOTE | 2018-12-29 09:10 | Diagnostic Imaging Report ---
INDICATION: Followup of right pneumothorax. Comparison with 12/28/2018. FINDINGS: Right thoracic chest tube remains present unchanged. The lungs are well-aerated. No evidence of pneumothorax or pleural effusion. Heart is not enlarged. No pulmonary edema. IMPRESSION: Stable portable chest with right chest tube present. No evidence of pneumothorax. Dictated by: Dictated on workstation # [id number]
[2018-12-29] MEDS ORDERED: PRED10TA22 PO ×2 (09:26)
[2018-12-29] MEDS ORDERED: ACHD5005 PO ×2 (09:26)
--- NOTE | 2018-12-29 09:27 | Discharge Summary-Hospitalist ---
Diagnosis/Chief Complaint Date of Admission Dec 26, 2018 at 16:39 Date of Discharge Discharge Date: Dec 29, 2018 Admission Diagnosis Assessment: Right-sided pneumothorax following lung biopsy Lung cancer COPD lying current smoker Hypertension Depression Plan: Chest tube management Pain control Home meds Discharge Diagnosis (1) Pneumothorax after biopsy Status: Resolved (2) COPD (chronic obstructive pulmonary disease) Status: Chronic (3) Lung cancer Status: Acute (4) Smoker Status: Chronic (5) Hypertension Status: Chronic (6) Depression Status: Chronic Discharge Summary Discharge Physical Exam Allergies: Coded Allergies: No Known Drug Allergies (Unverified , 07/22/17) Vitals & I&Os Vital Signs Date Time Temp Pulse Resp B/P (MAP) Pulse Ox O2 Delivery O2 Flow Rate FiO2 12/29/18 15:14 12/29/18 12:00 98.3 88 18 95 Room Air 12/28/18 11:23 3.00 General Appearance: No Apparent Distress, WD/WN, Chronically ill HEENT: PERRL/EOMI, Normal ENT Inspection, Pharynx Normal, Moist Mucous Membranes Respiratory: Chest Non Tender, No Accessory Muscle Use, No Respiratory Distress , Crackles, Decreased Breath Sounds, Wheezing Cardiovascular: Regular Rate, Rhythm, No Edema, No Gallop, No JVD, No Murmur, Normal Peripheral Pulses Gastrointestinal: Normal Bowel Sounds, No Organomegaly, No Pulsatile Mass, Non Tender, Soft Extremity: Normal Capillary Refill, Normal Inspection, Normal Range of Motion, Non Tender, No Calf Tenderness, No Pedal Edema Skin: Normal Color, Warm/Dry Neurologic/Psychiatric: Alert, Oriented x3, No Motor/Sensory Deficits, Normal Mood/Affect Hospital Course Was the Problem List Reviewed?: Yes Hospital Course: Pt had an uneventful hospital course who was admitted after a pneumothorax occurred from a lung biopsy. Chest tube was required, placed with out difficulty. Medication was maintained along with home medication and pain medication and Dr. Vazquez managed the chest tube aggressively. He was deemed stable for DC after no residual pneumothorax and he will have a procedure on Tuesday with Dr. Vazquez to further evaluate the lung. Labs (last 24 hrs) Laboratory Tests 12/29/18 03:50: White Blood Count 11.9H, Red Blood Count 4.38, Hemoglobin 13.5, Hematocrit 41, Mean Corpuscular Volume 94, Mean Corpuscular Hemoglobin 31, Mean Corpuscular Hemoglobin Concent 33, Red Cell Distribution Width 14.3, Platelet Count 148, Mean Platelet Volume 10.9H, Neutrophils (%) (Auto) 91H, Lymphocytes (%) (Auto) 5L, Monocytes (%) (Auto) 5, Eosinophils (%) (Auto) 0, Basophils (%) (Auto) 0, Neutrophils # (Auto) 10.8H, Lymphocytes # (Auto) 0.6L, Monocytes # (Auto) 0.6, Eosinophils # (Auto) 0.0, Basophils # (Auto) 0.0 Microbiology 12/27/18 Gram Stain - Final, Complete 12/27/18 Sputum Culture - Final, Complete Usual upper respiratory kristin Patient resulted labs reviewed. Pending Labs Discussion & Recommendations Discharge Planning: <30 minutes discharge planning Discharge Home Medications: Active Scripts Active Prednisone 10 Mg Tab.ds.pk 10 Mg PO DAILY Take 6 tabs(60mg)daily,decrease by 1 tab(10MG)daily. Hydrocodone/Acetaminophen 5/325mg Tablet (Acetaminophen/Hydrocodone Bitart) 1 Tab Tab 1 Tab PO Q4H PRN Reported Proventil Hfa (Albuterol Sulfate) 6.7 Gm Hfa.aer.ad 2 Puff INH Q4H PRN Spiriva (Tiotropium Martelle) 1 Inh Aerp 2 Puff IH DAILY Nicotine Patch (Nicotine) 1 Each Patch.td24 21 Mg TD DAILY Duloxetine HCl 30 Mg Capsule.dr 30 Mg PO DAILY Baclofen 20 Mg Tablet 20 Mg PO BID PRN Ibuprofen 600 Mg Tablet 600 Mg PO TID PRN Lisinopril 20 Mg Tablet 20 Mg PO DAILY Bupropion Xl (Bupropion HCl) 150 Mg Tab.er.24h 150 Mg PO DAILY Metoprolol Tartrate 25 Mg Tablet 25 Mg PO BID Instructions to patient/family Please see electronic discharge instructions given to patient. Clinical Quality Measures DVT/VTE Risk/Contraindication: Risk Factor Score Per Nursin RFS Level Per Nursing on Admit: 2=Moderate Problem Qualifiers (1) COPD (chronic obstructive pulmonary disease): COPD type: unspecified COPD Qualified Codes: J44.9 - Chronic obstructive pulmonary disease, unspecified (2) Lung cancer: Laterality: right Lung location: unspecified part of lung Qualified Codes: C34.91 - Malignant neoplasm of unspecified part of right bronchus or lung (3) Hypertension: Hypertension type: essential hypertension Qualified Codes: I10 - Essential ( primary) hypertension (4) Depression: Depression Type: unspecified Qualified Codes: F32.9 - Major depressive disorder, single episode, unspecified TOMI KO DO Dec 29, 2018 09:27
[2018-12-29 12:00] VITALS: BP 197/95
[2018-12-29] MEDS ORDERED: predniSONE 10 MG TAB PO SCH (12:00)
--- NOTE | 2018-12-29 12:49 | Diagnostic Imaging Report ---
INDICATION: Tube placement. TECHNIQUE: Limited images were obtained through the chest during CT-guided guidance of chest tube placement. FINDINGS: CT guidance was provided for Dr. Vazquez during placement of a thoracic vent. Final image demonstrates a catheter in satisfactory position. IMPRESSION: CT guidance for Dr. Vazquez during chest tube placement, as described. Dictated by: Dictated on workstation # [id number]
--- NOTE | 2018-12-29 13:09 | Diagnostic Imaging Report ---
INDICATION: Pneumothorax. Comparison made with prior examination 12/29/2018. FINDINGS: The right thoracostomy tube has been removed. There is no residual pneumothorax. Heart size is normal. No pleural effusion. There is unchanged soft tissue prominence about the right hilum. IMPRESSION: Unchanged soft tissue prominence about the right hilum otherwise unremarkable. Dictated by: Dictated on workstation # [id number]
== END 2018-12-29 15:25 | disposition home or self-care (01) | DRG 200 ==
LOC: EDSTATUS 11:27 → UNDOADMOB 16:39 → ICU 16:39 → 4TH 12-27 20:40 → UNDODISOB 12-29 15:25
PROVIDERS: ADMIT Internal Medicine; ATTEND Internal Medicine
PROC: 0W993ZZ Drainage of Right Pleural Cavity, Percutaneous Approach (ICD-10-PCS; principal; 2018-12-27)
DX: J95.811 Postprocedural pneumothorax (principal); C34.91 Malignant neoplasm of unspecified part of right bronchus or lung; J98.11 Atelectasis; J44.9 Chronic obstructive pulmonary disease, unspecified; I10 Essential (primary) hypertension; F32.9 Major depressive disorder, single episode, unspecified; F17.210 Nicotine dependence, cigarettes, uncomplicated; D72.829 Elevated white blood cell count, unspecified; E78.00 Pure hypercholesterolemia, unspecified; H91.90 Unspecified hearing loss, unspecified ear; F41.9 Anxiety disorder, unspecified; M19.91 Primary osteoarthritis, unspecified site; Z87.442 Personal history of urinary calculi; Z79.899 Other long term (current) drug therapy
CPT/HCPCS: 36415; 71045; 75989; 77012; 80048; 80053; 83735; 84100; 85007; 85025; 85027; 87070; 87081; 87205; 94640; 94760; 94761

== ENCOUNTER → 2018-12-26 | Outpatient (CLI) | payer OTHER ==
[~2018-12-26] MED LIST changes: +ALBU6.7H8 INH; +BACL20TA PO; +BUPR150T7 PO; +DULO30CA48 PO; +IBUP-1773 PO; +LISI-552 PO; +METO-333 PO; +NICO-588 TD; +PRD10T PO; +TIOT18CA2 IH
== END ==
LOC: PREOP 12:03
PROVIDERS: ATTEND Internal Medicine Critical Care Medicine
DX: Z01.818 Encounter for other preprocedural examination (principal)

== ENCOUNTER → 2018-12-26 | Outpatient (CLI) | payer OTHER ==
[~2018-12-26] MED LIST changes: +LIDOCAINE 1% INJ 20 ML 20 ML VIAL ONE; +MIDAZOLAM 2 MG/2 ML (VERSED) VIAL ONE; +fentaNYL INJECTION 100 MCG/2 ML AMP ONE
--- NOTE | 2018-12-26 13:06 | Diagnostic Imaging Report ---
INDICATION: Pneumothorax. COMPARISON: Comparison made with prior examination 12/13/2018. FINDINGS: Heart size is normal. There is soft tissue prominence about the right hilum. There is a moderate right pneumothorax. Left lung is clear. The mediastinum is unremarkable. IMPRESSION: 1. Moderate right pneumothorax. 2. Soft tissue prominence about the right hilum. Findings conveyed directly to Dr. Vazquez via telephone at 1:00 PM. Dictated by: Dictated on workstation # [id number]
== END ==
LOC: RAD 11:27
PROVIDERS: ATTEND Nurse Practitioner Family
DX: C34.90 Malignant neoplasm of unspecified part of unspecified bronchus or lung (principal); J93.9 Pneumothorax, unspecified; J44.9 Chronic obstructive pulmonary disease, unspecified; Z72.0 Tobacco use
CPT/HCPCS: 71046

== ENCOUNTER → 2019-01-03 | Day surgery (SDC) | payer OTHER ==
[~2019-01-03] VITALS: Ht 177.8 cm; Wt 102.7 kg
[~2019-01-03] MED LIST changes: +ACHD5005 PO; +ALBU6.7H8 INH; +BACL20TA PO; +BUPR150T7 PO; +DEXAMETHASONE 10 MG/ML (DECADRON) 1 ML VIAL ONE; +DULO30CA48 PO; +GLYCOPYRROLATE 0.2 MG/ML (ROBINUL) 2 ML VIAL ONE; +HYDROmorphone 2 MG/ML VIAL (DILAUDID) IV ONE; +IBUP-1773 PO; +LACTATED RINGERS 1,000 ML IV ONE; +LACTATED RINGERS 1,000 ML IV STA; +LIDOCAINE PF 1% 2 ML AMP IJ ONE; +LIDOCAINE PF 2% 5 ML (XYLOCAINE) VIAL ONE; +LISI-552 PO; +METO-333 PO; +MIDAZOLAM 2 MG/2 ML (VERSED) VIAL ONE; +NEOSTIGMINE 1 MG/ML 5 ML SYRINGE ONE; +NICO-588 TD; +ONDANSETRON 4 MG/2 ML (SDV) Z0FRAN IVP PRN; +ONDANSETRON 4 MG/2 ML (SDV) Z0FRAN ONE; +PRD10T PO; +PRED10TA22 PO; +ROCURONIUM 10 MG/ML 5 ML SYRINGE IV ONE; +RT-ALBUTEROL HFA (VENTOLIN) PER PUFF IH ONE; +SEVOFLURANE (ULTANE) 15 ML INHAL SOLN ONE; +TIOT18CA2 IH; +fentaNYL INJECTION 100 MCG/2 ML AMP ONE; +proPOfol 200 MG/20 ML (DIPRIVAN) VIAL IV ONE
[2019-01-03 08:24] VITALS: BP 188/107
--- NOTE | 2019-01-03 10:50 | Pulmonary Procedures ---
Pulmonary Procedures Date of Procedure Date of Service: Jan 03, 2019 Bronch Bronchoscopy with R lung wash, and, brushes. EBUS used to US the mediastinum however there was not any lymph node large enough to Bx. Preop DX lung cancer Postop DX: same, No endobronchial mass. No lymph node was visualized using EBUS that was large enough to bx. Complications: none After informed consent obtained and formal time out pt was sedated per anesthesia. Bronchoscope was advanced through the ET tube. 1% lidocaine was used to anesthetize blas, and left/right main stem bronchus. An anatomical tour was undertaken down to the segmental bronchi bilaterally. No endobronchial mass. No lymph nodes were visualized using EBUS that were large enough to bx. Bronchoscopy with R lung wash, and, brushes were obtained. Pt tolerated procedure well. No complications noted. Stat CXR is pending. CAROLYN MONDRAGON DO Jan 03, 2019 10:50
--- NOTE | 2019-01-03 11:21 | Diagnostic Imaging Report ---
PATIENT HISTORY: Post bronchoscopy. TECHNIQUE: Frontal view of the chest. COMPARISON: 12/29/2018. FINDINGS: Lung volumes are normal. No focal consolidation is seen. There is no pleural effusion or pneumothorax. The right hilar mass appears unchanged. The cardiac silhouette is stable in size. IMPRESSION: 1. Redemonstrated right hilar mass. No acute pulmonary abnormality seen. Dictated by: Dictated on workstation # [id number]
[2019-01-03 11:40] VITALS: BP 124/80
[2019-01-03 12:10] VITALS: BP 129/88
[2019-01-03 12:20] VITALS: BP 129/88
--- NOTE | 2019-01-03 14:18 | Anesthesia-General Post-Op ---
General Patient Condition Mental Status/LOC: Same as Preop Cardiovascular: Satisfactory Nausea/Vomiting: Absent Respiratory: Satisfactory Pain: Controlled Complications: Absent Post Op Complications Complications None Follow Up Care/Instructions Patient Instructions None needed. Anesthesia/Patient Condition Patient Condition Patient was seen after the procedure and he was doing well, no complaints, stable vital signs, no apparent adverse anesthesia problems. BENSON LALA DO Jan 03, 2019 14:18
== END | disposition home or self-care (01) ==
LOC: ENDO 07:51
PROVIDERS: ATTEND Internal Medicine Critical Care Medicine
DX: C34.90 Malignant neoplasm of unspecified part of unspecified bronchus or lung (principal); I10 Essential (primary) hypertension; E78.5 Hyperlipidemia, unspecified; F17.210 Nicotine dependence, cigarettes, uncomplicated; J44.9 Chronic obstructive pulmonary disease, unspecified; F32.9 Major depressive disorder, single episode, unspecified; F41.9 Anxiety disorder, unspecified; Z79.899 Other long term (current) drug therapy
CPT/HCPCS: 71045; 87015; 87070; 87101; 87116; 87205; 87206

== ENCOUNTER → 2019-01-26 | Outpatient (CLI) | payer SELFPAY ==
[~2019-01-26] MED LIST changes: -DEXAMETHASONE 10 MG/ML (DECADRON) 1 ML VIAL ONE; -GLYCOPYRROLATE 0.2 MG/ML (ROBINUL) 2 ML VIAL ONE; -HYDROmorphone 2 MG/ML VIAL (DILAUDID) IV ONE; -LACTATED RINGERS 1,000 ML IV ONE; -LACTATED RINGERS 1,000 ML IV STA; -LIDOCAINE PF 1% 2 ML AMP IJ ONE; -LIDOCAINE PF 2% 5 ML (XYLOCAINE) VIAL ONE; -MIDAZOLAM 2 MG/2 ML (VERSED) VIAL ONE; -NEOSTIGMINE 1 MG/ML 5 ML SYRINGE ONE; -ONDANSETRON 4 MG/2 ML (SDV) Z0FRAN IVP PRN; -ONDANSETRON 4 MG/2 ML (SDV) Z0FRAN ONE; -ROCURONIUM 10 MG/ML 5 ML SYRINGE IV ONE; -RT-ALBUTEROL HFA (VENTOLIN) PER PUFF IH ONE; +RT-ALBUTEROL SULF 2.5 MG/3 ML PRE-MIX VIAL INH ONE; -SEVOFLURANE (ULTANE) 15 ML INHAL SOLN ONE; -fentaNYL INJECTION 100 MCG/2 ML AMP ONE; -proPOfol 200 MG/20 ML (DIPRIVAN) VIAL IV ONE
== END ==
LOC: RT 14:15
PROVIDERS: ATTEND Nurse Practitioner Family
DX: C34.90 Malignant neoplasm of unspecified part of unspecified bronchus or lung (principal); J44.9 Chronic obstructive pulmonary disease, unspecified; R06.2 Wheezing; Z72.0 Tobacco use; Z87.09 Personal history of other diseases of the respiratory system; R19.7 Diarrhea, unspecified
CPT/HCPCS: 94060; 94726; 94729

== ENCOUNTER 2019-03-05 13:05 | Outpatient (RCR) | payer MEDICAID, OTHER ==
[~2019-03-05 13:05] MED LIST changes: -DULO30CA48 PO; +DULO30CA49 PO; -RT-ALBUTEROL SULF 2.5 MG/3 ML PRE-MIX VIAL INH ONE
== END 2019-06-03 | disposition home or self-care (01) ==
LOC: PULM 13:05
PROVIDERS: ATTEND Nurse Practitioner Family
DX: J44.9 Chronic obstructive pulmonary disease, unspecified (principal); R06.2 Wheezing; Z87.09 Personal history of other diseases of the respiratory system; Z72.0 Tobacco use
CPT/HCPCS: 99211

== ENCOUNTER → 2019-04-17 | Outpatient (CLI) | payer MEDICAID, OTHER ==
[~2019-04-17] MED LIST changes: +DULO30CA48 PO; -DULO30CA49 PO; +HOLD METFORMIN - RECEIVED CONTRAST 20 ML VIAL IV SCH; +IOHEXOL 350 MG/ML 100 ML (OMNIPAQUE 350) VIAL IV ONE; +NS 100 ML (IVPB) BAG IV ONE
[2019-04-17 10:29] LABS: BUN/CREATININE RATIO 18; CREATININE SERUM 0.83 MG/DL (0.60-1.30); GFR ESTIMATED > 60
--- NOTE | 2019-04-17 11:16 | Diagnostic Imaging Report ---
PROCEDURE: CT chest with contrast only. TECHNIQUE: Multiple contiguous axial images were obtained through the chest after administration of intravenous contrast. Auto Exposure Controls were utilized during the CT exam to meet ALARA standards for radiation dose reduction. INDICATION: Lung cancer. Surveillance imaging. COMPARISON: CT chest of 11/24/2018 FINDINGS: Lungs and airway: No endoluminal nodule within the trachea. The spiculated mass in the right upper lobe has mildly increased in size now with maximal dimensions of 4.1 x 4.1 cm (previously 3.8 x 3.7 cm when measured similarly). The mass again has broad abutment of the mediastinum with probable invasion of the mediastinal fat lateral to the superior vena cava. No satellite metastatic nodules within the right lung. No contralateral pulmonary nodules. Pleura: No pleural effusion, nodularity or pneumothorax. Heart and mediastinum: Thyroid is normal. No supraclavicular or axillary lymphadenopathy. No mediastinal, hilar or juxtaphrenic lymphadenopathy. Heart is mildly enlarged without pericardial effusion. Normal caliber thoracic aorta. Upper abdomen: No features of metastatic disease in the upper abdomen. Musculoskeletal: No lytic or blastic skeletal lesions. IMPRESSION: 1. The right upper lobe primary lung cancer has mildly increased in size since 11/24/2018. This could represent tumor growth versus posttreatment change. Continued close attention on followup imaging. 2. No regional metastases. Dictated by: Dictated on workstation # [id number]
== END ==
LOC: RAD 09:49
PROVIDERS: ATTEND Nurse Practitioner Family
DX: C34.11 Malignant neoplasm of upper lobe, right bronchus or lung (principal); J44.9 Chronic obstructive pulmonary disease, unspecified; Z87.09 Personal history of other diseases of the respiratory system; Z72.0 Tobacco use
CPT/HCPCS: 36415; 71260; 82565; 84520

== ENCOUNTER 2019-05-09 12:36 | Outpatient (RCR) | payer MEDICAID, OTHER ==
[~2019-05-09 12:36] MED LIST changes: -DULO30CA48 PO; +DULO30CA49 PO; -HOLD METFORMIN - RECEIVED CONTRAST 20 ML VIAL IV SCH; -IOHEXOL 350 MG/ML 100 ML (OMNIPAQUE 350) VIAL IV ONE; -NS 100 ML (IVPB) BAG IV ONE
== END 2019-08-07 | disposition home or self-care (01) ==
LOC: ONC 12:36
PROVIDERS: ATTEND Internal Medicine Hematology & Oncology
DX: C34.11 Malignant neoplasm of upper lobe, right bronchus or lung (principal); J44.9 Chronic obstructive pulmonary disease, unspecified; I10 Essential (primary) hypertension; F17.210 Nicotine dependence, cigarettes, uncomplicated; Z79.899 Other long term (current) drug therapy
CPT/HCPCS: 99213

== ENCOUNTER → 2019-11-13 | Outpatient (CLI) | payer MEDICAID, OTHER ==
[~2019-11-13] MED LIST changes: +BARIUM SUSPENSION 2.1% (VANILLA SILQ) 450 ML PO ONE; +CATHETER FLUSH 10 ML SYR IV PRN; +HOLD METFORMIN - RECEIVED CONTRAST 20 ML VIAL IV SCH; +IOHEXOL 350 MG/ML 100 ML (OMNIPAQUE 350) VIAL IV ONE; +NS 100 ML (IVPB) BAG IV ONE
--- NOTE | 2019-11-13 16:24 | Diagnostic Imaging Report ---
EXAMINATION: CT Chest, Abdomen and Pelvis with intravenous contrast. TECHNIQUE: Multiple contiguous axial images were obtained through the chest, abdomen and pelvis after the uneventful administration of intravenous contrast. All CT scans use one or more of the following dose optimizing techniques: automated exposure control, MA and/or KvP adjustment based on a patient size and exam type, or iterative reconstruction. HISTORY: Lung cancer. COMPARISON: 04/17/2019. FINDINGS: There are postsurgical changes of right upper and middle lobectomy. There is also paramediastinal fibrosis and architectural distortion with areas of traction bronchiectasis which may reflect prior radiation therapy. The most discrete area of soft tissue is in the right hilar region and measures 22 x 11 mm and this is likely postsurgical in nature (series 2, image 57). Heart size is normal. No pericardial effusion. Aorta is normal in caliber. There is no axillary or supraclavicular lymphadenopathy. There is no mediastinal lymphadenopathy. The liver is normal without focal lesion. There is no biliary ductal dilation. Gallbladder is normal. Pancreas is normal. There is stable 15 mm cyst in the spleen. Nodular thickening of the left adrenal gland is stable. The kidneys are normal. There is no hydronephrosis. Urinary bladder is normal. There are no dilated loops of large or small bowel. No obstruction or inflammation. No free fluid or air. No abdominal or pelvic lymphadenopathy. Aorta is normal in caliber without aneurysm. There are no suspicious osseus lesions. IMPRESSION: 1. Postsurgical changes of right upper and middle lobectomy with a small nodular focus of soft tissue in the right hilum likely representing surgical scarring, consider follow-up. 2. No metastatic disease identified in the abdomen or pelvis. Dictated by: Dictated on workstation # [id number]
== END ==
LOC: RAD 13:53
PROVIDERS: ATTEND Internal Medicine Hematology & Oncology
DX: R91.1 Solitary pulmonary nodule (principal); Z98.890 Other specified postprocedural states; Z85.118 Personal history of other malignant neoplasm of bronchus and lung
CPT/HCPCS: 71260; 74177

== ENCOUNTER 2019-11-14 12:49 | Outpatient (RCR) | payer MEDICAID, OTHER ==
[2019-11-13 14:52] LABS: BASOPHILS % (AUTO) 0 % (0-10); EOSINOPHILS # (AUTO) 0.1 10^3/uL (0.0-0.3); EOSINOPHILS % (AUTO) 1 % (0-10); HEMATOCRIT 42 % (40-54); HEMOGLOBIN 14.6 G/DL (13.3-17.7); LYMPHOCYTES % (AUTO) 15 % (12-44); MEAN CORPUSCULAR HEMOGLOBIN 34 PG (25-34); MEAN CORPUSCULAR HGB CONC 35 G/DL (32-36); MEAN CORPUSCULAR VOLUME 98 FL (80-99); MEAN PLATELET VOLUME 9.7 FL (7.4-10.4); MONOCYTES # (AUTO) 0.9 X 10^3 (0.0-1.0); MONOCYTES % (AUTO) 14 % (0-12); NEUTROPHILS # (AUTO) 4.7 X 10^3 (1.8-7.8); NEUTROPHILS % (AUTO) 70 % (42-75); PLATELET COUNT 141 10^3/uL (130-400); WHITE BLOOD COUNT 6.6 10^3/uL (4.3-11.0)
[2019-11-13 15:19] LABS: ALANINE AMINOTRANSFERASE 48 U/L (0-55); ALBUMIN 4.1 GM/DL (3.2-4.5); ALKALINE PHOSPHATASE 47 U/L (40-136); BILIRUBIN,TOTAL 0.8 MG/DL (0.1-1.0); BUN/CREATININE RATIO 14; CARBON DIOXIDE 26 MMOL/L (21-32); CHLORIDE 103 MMOL/L (98-107); CREATININE SERUM 0.84 MG/DL (0.60-1.30); GFR ESTIMATED > 60; GLUCOSE 105 MG/DL (70-105); POTASSIUM 3.6 MMOL/L (3.6-5.0); SODIUM 140 MMOL/L (135-145)
[~2019-11-14 12:49] MED LIST changes: -BARIUM SUSPENSION 2.1% (VANILLA SILQ) 450 ML PO ONE; -CATHETER FLUSH 10 ML SYR IV PRN; -HOLD METFORMIN - RECEIVED CONTRAST 20 ML VIAL IV SCH; -IOHEXOL 350 MG/ML 100 ML (OMNIPAQUE 350) VIAL IV ONE; -NS 100 ML (IVPB) BAG IV ONE
[2019-12-31] MEDS ORDERED: CEFU250T80 PO (19:27)
[2019-12-31] MEDS ORDERED: PRD20T PO (19:27)
== END 2020-02-11 | disposition home or self-care (01) ==
LOC: ONC 12:49
PROVIDERS: ATTEND Internal Medicine Hematology & Oncology
DX: C34.11 Malignant neoplasm of upper lobe, right bronchus or lung (principal); J44.9 Chronic obstructive pulmonary disease, unspecified; I10 Essential (primary) hypertension; F17.210 Nicotine dependence, cigarettes, uncomplicated; Z79.899 Other long term (current) drug therapy
CPT/HCPCS: 80053; 85025; 99213

== ENCOUNTER 2019-12-31 17:22 | Emergency (ER) | payer MEDICAID, OTHER ==
[~2019-12-31] VITALS: Ht 177.8 cm; Wt 86.3 kg
[2019-12-31] MEDS ORDERED: NS IV 1000 ML 2,000 ML ONE (17:37)
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
[2019-12-31 17:57] LABS: BASOPHILS % (AUTO) 0 % (0-10); EOSINOPHILS % (AUTO) 1 % (0-10); HEMATOCRIT 41 % (40-54); HEMOGLOBIN 14.3 G/DL (13.3-17.7); LYMPHOCYTES % (AUTO) 22 % (12-44); MEAN CORPUSCULAR HEMOGLOBIN 33 PG (25-34); MEAN CORPUSCULAR HGB CONC 35 G/DL (32-36); MEAN CORPUSCULAR VOLUME 94 FL (80-99); MEAN PLATELET VOLUME 10.3 FL (7.4-10.4); MONOCYTES # (AUTO) 0.5 X 10^3 (0.0-1.0); MONOCYTES % (AUTO) 12 % (0-12); NEUTROPHILS # (AUTO) 2.9 X 10^3 (1.8-7.8); NEUTROPHILS % (AUTO) 66 % (42-75); PLATELET COUNT 118 10^3/uL (130-400); RED CELL DISTRIBUTION WIDTH 13.6 % (10.0-14.5); WHITE BLOOD COUNT 4.5 10^3/uL (4.3-11.0)
[2019-12-31] MEDS ORDERED: NS IV 1000 ML 1,000 ML IV SCH ×2 (18:00)
[2019-12-31 18:10] LABS: ALANINE AMINOTRANSFERASE 130 U/L (0-55); ALBUMIN 4.2 GM/DL (3.2-4.5); ALKALINE PHOSPHATASE 55 U/L (40-136); BILIRUBIN,TOTAL 0.8 MG/DL (0.1-1.0); BUN/CREATININE RATIO 8; CALCIUM 8.6 MG/DL (8.5-10.1); CARBON DIOXIDE 25 MMOL/L (21-32); CHLORIDE 96 MMOL/L (98-107); CREATININE SERUM 0.99 MG/DL (0.60-1.30); GFR ESTIMATED > 60; GLUCOSE 95 MG/DL (70-105); POTASSIUM 3.8 MMOL/L (3.6-5.0); SODIUM 132 MMOL/L (135-145); TOTAL PROTEIN 6.8 GM/DL (6.4-8.2)
--- NOTE | 2019-12-31 18:27 | Diagnostic Imaging Report ---
INDICATION: Shortness of breath. Decreased O2 sats. Slurred speech. Comparison with 01/03/2019. There are surgical clips in the right hilum. The lungs are well-aerated and clear. There is some elevation of the right hemidiaphragm consistent with previous surgery. The heart is not enlarged. No pulmonary edema. No pneumothorax or pleural effusion. No bony abnormalities. IMPRESSION: 1. Postsurgical changes right hilum with no acute abnormalities. Dictated by: Dictated on workstation # [id number]
[2019-12-31] MEDS ORDERED: PRD20T PO (19:27)
[2019-12-31] MEDS ORDERED: CEFU250T80 PO (19:27)
[2019-12-31] MEDS ORDERED: RT-ALBUTEROL/IPRATROPIUM 3 ML (DUONEB) VIAL INH ONE (19:45)
[2019-12-31 19:47] VITALS: BP 103/73
== END 2019-12-31 19:54 | disposition home or self-care (01) ==
LOC: EDUNIT# 17:22 → ER 17:23
DX: J44.1 Chronic obstructive pulmonary disease with (acute) exacerbation (principal); I10 Essential (primary) hypertension; F41.9 Anxiety disorder, unspecified; F32.9 Major depressive disorder, single episode, unspecified; F10.129 Alcohol abuse with intoxication, unspecified; F17.210 Nicotine dependence, cigarettes, uncomplicated; Z87.442 Personal history of urinary calculi; Z85.118 Personal history of other malignant neoplasm of bronchus and lung; Z82.49 Family history of ischemic heart disease and other diseases of the circulatory system; Y90.8 Blood alcohol level of 240 mg/100 ml or more
CPT/HCPCS: 36415; 71046; 80053; 80320; 83605; 83880; 84484; 85025; 87040; 87804; 93005; 94640

== ENCOUNTER 2020-03-14 14:52 | Emergency (ER) | payer MEDICAID ==
[~2020-03-14] VITALS: Ht 177.8 cm; Wt 83.9 kg
[~2020-03-14 14:52] MED LIST changes: +CEFU250T80 PO
[2020-03-14] MEDS ORDERED: NS IV 1000 ML 1,000 ML ONE (15:04)
[2020-03-14] MEDS ORDERED: NS IV 1000 ML 1,000 ML IV SCH (15:15)
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
[2020-03-14 15:20] LABS: ABG BASE EXCESS 3.3 MMOL/L (-2.5-2.5); ABG OXYGEN SATURATION 63 % (94-100); ABG PCO2 42 MMHG (35-45); ABG PH 7.43 (7.37-7.43); ABG PO2 44 MMHG (79-93); ABG TCO2 28.8 MMOL/L (21.0-31.0); ALLENS TEST YES-POS; INSPIRED O2 RA; PATIENT TEMP 97.2; VENTILATOR NO
[2020-03-14 15:21] LABS: BASOPHILS % (AUTO) 0 % (0-10); EOSINOPHILS % (AUTO) 0 % (0-10); HEMATOCRIT 42 % (40-54); HEMOGLOBIN 14.9 G/DL (13.3-17.7); LYMPHOCYTES # (AUTO) 0.6 X 10^3 (1.0-4.0); LYMPHOCYTES % (AUTO) 13 % (12-44); MEAN CORPUSCULAR HEMOGLOBIN 33 PG (25-34); MEAN CORPUSCULAR HGB CONC 35 G/DL (32-36); MEAN CORPUSCULAR VOLUME 93 FL (80-99); MEAN PLATELET VOLUME 11.5 FL (7.4-10.4); MONOCYTES # (AUTO) 0.8 X 10^3 (0.0-1.0); MONOCYTES % (AUTO) 16 % (0-12); NEUTROPHILS # (AUTO) 3.5 X 10^3 (1.8-7.8); NEUTROPHILS % (AUTO) 71 % (42-75); PLATELET COUNT 74 10^3/uL (130-400); RED CELL DISTRIBUTION WIDTH 13.5 % (10.0-14.5); WHITE BLOOD COUNT 4.9 10^3/uL (4.3-11.0)
[2020-03-14 15:31] LABS: ALBUMIN 4.9 GM/DL (3.2-4.5); CHLORIDE 92 MMOL/L (98-107); POTASSIUM 3.7 MMOL/L (3.6-5.0); SODIUM 131 MMOL/L (135-145)
[2020-03-14 15:32] LABS: AMMONIA 37 UMOL/L (11-32)
[2020-03-14 15:33] LABS: GLUCOSE 167 MG/DL (70-105)
[2020-03-14 15:34] LABS: ABG BASE EXCESS 2.1 MMOL/L (-2.5-2.5); ABG OXYGEN SATURATION 97 % (94-100); ABG PCO2 38 MMHG (35-45); ABG PH 7.44 (7.37-7.43); ABG PO2 92 MMHG (79-93); ABG TCO2 27.2 MMOL/L (21.0-31.0)
[2020-03-14 15:34] LABS: TOTAL PROTEIN 8.4 GM/DL (6.4-8.2)
[2020-03-14 15:35] LABS: BILIRUBIN,TOTAL 2.1 MG/DL (0.1-1.0); CARBON DIOXIDE 22 MMOL/L (21-32)
[2020-03-14 15:37] LABS: ALKALINE PHOSPHATASE 64 U/L (40-136); CREATININE SERUM 0.97 MG/DL (0.60-1.30); GFR ESTIMATED > 60
[2020-03-14 15:37] LABS: ALLENS TEST YES-POS; INSPIRED O2 2L; PATIENT TEMP 97.2; VENTILATOR NO
[2020-03-14 15:38] LABS: BUN/CREATININE RATIO 8
[2020-03-14 15:40] LABS: ALANINE AMINOTRANSFERASE 94 U/L (0-55)
[2020-03-14 15:48] LABS: INR 0.8 (0.8-1.4); PROTHROMBIN TIME PATIENT 11.7 SEC (12.2-14.7)
[2020-03-14] MEDS ORDERED: ONDANSETRON 4 MG/2 ML (SDV) Z0FRAN ONE (16:14)
[2020-03-14] MEDS ORDERED: NS 100 ML (IVPB) BAG IV ONE (16:15)
[2020-03-14] MEDS ORDERED: HOLD METFORMIN - RECEIVED CONTRAST 20 ML VIAL IV SCH (16:15)
[2020-03-14] MEDS ORDERED: LABETALOL HCL 20 MG/4 ML VIAL IV ONE (16:15)
[2020-03-14] MEDS ORDERED: CATHETER FLUSH 10 ML SYR IV PRN (16:15)
[2020-03-14] MEDS ORDERED: IOHEXOL 350 MG/ML 100 ML (OMNIPAQUE 350) VIAL IV ONE (16:15)
[2020-03-14] MEDS ORDERED: ONDANSETRON 4 MG/2 ML (SDV) Z0FRAN IVP ONE (16:30)
--- NOTE | 2020-03-14 17:08 | Diagnostic Imaging Report ---
CT CAPRICE CHEST/NOANG ABD-PELV W Technique: CTA chest was performed with IV contrast. 3-D MIP reformats were created and submitted. CT abdomen and pelvis was then performed with IV contrast. Automatic exposure controls were utilized to keep dose as low as reasonably achievable. Indication: Lung cancer, diarrhea, cramps and sweating Comparison: CT chest, abdomen and pelvis from 11/13/2019 Findings: CTA CHEST: Stable postoperative changes of right upper and middle lobectomies. Compensatory hyperaeration of the right lower lobe is present. No pulmonary emboli are present on either side. No CT features of right ventricular strain or pulmonary hypertension. Heart is normal in size without pericardial effusion. Normal caliber thoracic aorta has no dissection. Trace right pleural effusion is present. No endoluminal nodule within the trachea. No pulmonary mass. Focal area of scarring along the right hilar region is unchanged. Asymmetric elevation of the right hemidiaphragm is unchanged and due to volume loss associated with lobectomies. No worrisome focal osseous lesions. CT ABDOMEN AND PELVIS: Diffuse hypoattenuation of the liver is indicative of hepatic steatosis. No focal hepatic mass. Stable small cyst in the tip of the spleen which requires no dedicated follow-up imaging. Pancreas is normal. Nodular thickening of the left adrenal gland is unchanged. No right adrenal mass. Kidneys enhance symmetrically without mass lesion or obstruction. No ureteral calculi. The urinary bladder is partially filled without focal wall thickening. Prostate is not enlarged. No bowel obstruction. No pericolonic inflammatory change. The stomach is decompressed, limiting assessment. Small fluid and air filled diverticulum arising from the second portion duodenum is stable. No abdominal or pelvic lymphadenopathy. No worrisome focal osseous lesions. Impression: 1. No pulmonary emboli or acute aortic syndrome. 2. Trace right pleural effusion is new since CT chest of 11/03/2019. 3. No acute process in the abdomen or pelvis. 4. Diffuse hepatic steatosis. Dictated by: Dictated on workstation # [id number]
[2020-03-14] MEDS ORDERED: CEFU250T80 PO (17:40)
[2020-03-14] MEDS ORDERED: PRD20T PO (17:40)
[2020-03-14] MEDS ORDERED: CEPHALEXIN 250 MG (KEFLEX) CAP PO ONE (17:45)
[2020-03-14] MEDS ORDERED: predniSONE 20 MG TAB PO ONE (17:45)
--- OUTSIDE RECORDS SUMMARY | 2020-03-14 17:54 | XMS REPORT | Continuity of Care Document ---
Demographics Preferred Language Unknown Marital Status Unknown Alevism Affiliation Unknown Race Unknown Ethnic Group Unknown Author Organization Unknown Address Unknown Phone Unavailable Allergies Active Description Code Type Severity Reaction Onset Reported/Identified Relationship to Patient Clinical Status Yes No Known Drug Allergies [id number] Drug Allergy Unknown N/A 07/22/2017 Medications There is no data. Problems Date Dx Coded Attending Type Code Diagnosis Diagnosed By 07/22/2017 BRANDON WALTON APRN Ot F17.210 NICOTINE DEPENDENCE, CIGARETTES, UNCOMPL 07/22/2017 BRANDON WALTON APRN Ot J44 .1 CHRONIC OBSTRUCTIVE PULMONARY DISEASE W 07/22/2017 BRANDON WALTON APRN Ot R07 .9 CHEST PAIN, UNSPECIFIED 07/25/2017 BRANDON WALTON APRN Ot F17.210 NICOTINE DEPENDENCE, CIGARETTES, UNCOMPL 07/25/2017 BRANDON WALTON APRN Ot J44 .1 CHRONIC OBSTRUCTIVE PULMONARY DISEASE W 07/25/2017 BRANDON WALTON APRN Ot R07 .9 CHEST PAIN, UNSPECIFIED 07/26/2017 BRANDON WALTON APRN Ot F17.210 NICOTINE DEPENDENCE, CIGARETTES, UNCOMPL 07/26/2017 BRANDON WALTON APRN Ot J44 .1 CHRONIC OBSTRUCTIVE PULMONARY DISEASE W 07/26/2017 BRANDON WALTON APRN Ot R07 .9 CHEST PAIN, UNSPECIFIED 07/28/2017 BRANDON WALTON APRN Ot F17.210 NICOTINE DEPENDENCE, CIGARETTES, UNCOMPL 07/28/2017 BRANDON WALTON APRN Ot J44 .1 CHRONIC OBSTRUCTIVE PULMONARY DISEASE W 07/28/2017 BRANDON WALTON APRN Ot R07 .9 CHEST PAIN, UNSPECIFIED 12/05/2018 NORMAN RAE ELECTRICIAN YARD Ot E27.8 OTHER SPECIFIED DISORDERS OF ADRENAL GLA 12/05/2018 NORMAN RAE ELECTRICIAN YARD Ot J98.4 OTHER DISORDERS OF LUNG 12/05/2018 NORMAN RAE ELECTRICIAN YARD Ot R91.8 OTHER NONSPECIFIC ABNORMAL FINDING OF [place] 12/05/2018 NORMAN RAE ELECTRICIAN YARD Ot R92.8 OTH ABN AND INCONCLUSIVE FINDINGS ON DX 12/12/2018 NORMAN RAE ELECTRICIAN YARD Ot E27.8 OTHER SPECIFIED DISORDERS OF ADRENAL GLA 12/12/2018 NORMAN RAE L ELECTRICIAN YARD Ot J98.4 OTHER DISORDERS OF LUNG 12/12/2018 EATNORMAN ALVARES L ELECTRICIAN YARD Ot R91.8 OTHER NONSPECIFIC ABNORMAL FINDING OF [place] 12/12/2018 NORMAN RAE L ELECTRICIAN YARD Ot R92.8 OTH ABN AND INCONCLUSIVE FINDINGS ON DX 12/13/2018 NORMAN RAE L ELECTRICIAN YARD Ot E27.8 OTHER SPECIFIED DISORDERS OF ADRENAL GLA 12/13/2018 EATNORMAN ALVARES L ELECTRICIAN YARD Ot J98.4 OTHER DISORDERS OF LUNG 12/13/2018 NORMAN RAE L ELECTRICIAN YARD Ot R91.8 OTHER NONSPECIFIC ABNORMAL FINDING OF [place] 12/13/2018 EATNORMAN ALVARES L ELECTRICIAN YARD Ot E27.8 OTHER SPECIFIED DISORDERS OF ADRENAL GLA 12/13/2018 EATROBEL ALVARESSON L ELECTRICIAN YARD Ot J98.4 OTHER DISORDERS OF LUNG 12/13/2018 EATNORMAN ALVARES L ELECTRICIAN YARD Ot R91.8 OTHER NONSPECIFIC ABNORMAL FINDING OF [place] 12/13/2018 NORMAN RAE L ELECTRICIAN YARD Ot R92.8 OTH ABN AND INCONCLUSIVE FINDINGS ON DX 12/13/2018 NORMAN RAE L ELECTRICIAN YARD Ot C34.11 MALIGNANT NEOPLASM OF UPPER LOBE, RIGHT 12/13/2018 NORMAN RAE L ELECTRICIAN YARD Ot J95.811 POSTPROCEDURAL PNEUMOTHORAX 12/13/2018 ROBEL RAESON L ELECTRICIAN YARD Ot R91.8 OTHER NONSPECIFIC ABNORMAL FINDING OF [place] 12/15/2018 NORMAN RAE L ELECTRICIAN YARD Ot E27.8 OTHER SPECIFIED DISORDERS OF ADRENAL GLA 12/15/2018 ROBEL RAESON L ELECTRICIAN YARD Ot J98.4 OTHER DISORDERS OF LUNG 12/15/2018 EATNORMAN ALVARES L ELECTRICIAN YARD Ot R91.8 OTHER NONSPECIFIC ABNORMAL FINDING OF [place] 12/15/2018 NORMAN RAE L ELECTRICIAN YARD Ot R92.8 OTH ABN AND INCONCLUSIVE FINDINGS ON DX 12/18/2018 NORMAN RAE L ELECTRICIAN YARD Ot C34.11 MALIGNANT NEOPLASM OF UPPER LOBE, RIGHT 12/18/2018 NORMAN RAE L ELECTRICIAN YARD Ot J95.811 POSTPROCEDURAL PNEUMOTHORAX 12/20/2018 NORMAN RAE L ELECTRICIAN YARD Ot E27.8 OTHER SPECIFIED DISORDERS OF ADRENAL GLA 12/20/2018 EATROBEL ALVARESSON L ELECTRICIAN YARD Ot J98.4 OTHER DISORDERS OF LUNG 12/20/2018 NORMAN RAE ELECTRICIAN YARD Ot R91.8 OTHER NONSPECIFIC ABNORMAL FINDING OF [place] 12/20/2018 NORMAN RAE ELECTRICIAN YARD Ot R92.8 OTH ABN AND INCONCLUSIVE FINDINGS ON DX 12/26/2018 SALAS MEJIA MD Ot C34.11 MALIGNANT NEOPLASM OF UPPER LOBE, RIGHT 12/26/2018 SALAS MEJIA MD Ot F17.210 NICOTINE DEPENDENCE, CIGARETTES, UNCOMPL 12/26/2018 SALAS MEJIA MD Ot I10 ESSENTIAL (PRIMARY) HYPERTENSION 12/26/2018 SALAS MJEIA MD Ot J44.9 CHRONIC OBSTRUCTIVE PULMONARY DISEASE, U 12/27/2018 CAROLYN MONDRAGON DO Ot Z01.818 ENCOUNTER FOR OTHER PREPROCEDURAL EXAMIN 12/29/2018 TOMI KO DO Ot C34.91 MALIGNANT NEOPLASM OF UNSP PART OF RIGHT 12/29/2018 TOMI KO DO Ot D72.82 9 ELEVATED WHITE BLOOD CELL COUNT, UNSPECI 12/29/2018 TOMI KO DO Ot E78.00 PURE HYPERCHOLESTEROLEMIA, UNSPECIFIED 12/29/2018 TOMI KO DO Ot F17.21 0 NICOTINE DEPENDENCE, CIGARETTES, UNCOMPL 12/29/2018 TOMI KO DO Ot F32.9 MAJOR DEPRESSIVE DISORDER, SINGLE EPISOD 12/29/2018 TOMI KO DO Ot F41.9 ANXIETY DISORDER, UNSPECIFIED 12/29/2018 TOMI KO DO Ot H91.90 UNSPECIFIED HEARING LOSS, UNSPECIFIED EA 12/29/2018 TOMI KO DO Ot I10 ESSENTIAL (PRIMARY) HYPERTENSION 12/29/2018 TOMI KO DO Ot J44.9 CHRONIC OBSTRUCTIVE PULMONARY DISEASE, U 12/29/2018 TOMI KO DO Ot J95.81 1 POSTPROCEDURAL PNEUMOTHORAX 12/29/2018 TOMI KO DO Ot J98.11 ATELECTASIS 12/29/2018 TOMI KO DO Ot M19.91 PRIMARY OSTEOARTHRITIS, UNSPECIFIED SITE 12/29/2018 TOMI KO DO Ot Z79.89 9 OTHER [facility] (CURRENT) DRUG THERAPY 12/29/2018 TOMI KO DO Ot Z87.44 2 PERSONAL HISTORY OF URINARY CALCULI 01/04/2019 TOMI KO DO Ot C34.91 MALIGNANT NEOPLASM OF UNSP PART OF RIGHT 01/04/2019 MAIKEL MACARIO TOMI Ot D72.82 9 ELEVATED WHITE BLOOD CELL COUNT, UNSPECI 01/04/2019 MAIKEL MACARIO TOMI Ot E78.00 PURE HYPERCHOLESTEROLEMIA, UNSPECIFIED 01/04/2019 MAIKEL MACARIO TOMI Ot F17.21 0 NICOTINE DEPENDENCE, CIGARETTES, UNCOMPL 01/04/2019 TOMI KO DO Ot F32.9 MAJOR DEPRESSIVE DISORDER, SINGLE EPISOD 01/04/2019 TOMI KO DO Ot F41.9 ANXIETY DISORDER, UNSPECIFIED 01/04/2019 MAIKEL MACARIO TOMI Ot H91.90 UNSPECIFIED HEARING LOSS, UNSPECIFIED EA 01/04/2019 MAIKEL MACARIO TOMI Ot I10 ESSENTIAL (PRIMARY) HYPERTENSION 01/04/2019 TOMI KO DO Ot J44.9 CHRONIC OBSTRUCTIVE PULMONARY DISEASE, U 01/04/2019 JOY KO DOI Ot J95.81 1 POSTPROCEDURAL PNEUMOTHORAX 01/04/2019 JOY KO DOI Ot J98.11 ATELECTASIS 01/04/2019 TOMI KO DO Ot M19.91 PRIMARY OSTEOARTHRITIS, UNSPECIFIED SITE 01/04/2019 TOMI KO DO Ot Z79.89 9 OTHER [facility] (CURRENT) DRUG THERAPY 01/04/2019 TOMI KO DO Ot Z87.44 2 PERSONAL HISTORY OF URINARY CALCULI 01/05/2019 CAROLYN MONDRAGON DO Ot C34. 90 MALIGNANT NEOPLASM OF UNSP PART OF UNSP 01/05/2019 CAROLYN MONDRAGON DO Ot E78. 5 HYPERLIPIDEMIA, UNSPECIFIED 01/05/2019 CAROLYN MONDRAGON DO Ot F17.210 NICOTINE DEPENDENCE, CIGARETTES, UNCOMPL 01/05/2019 CAROLYN MONDRAGON DO, Ot F32. 9 MAJOR DEPRESSIVE DISORDER, SINGLE EPISOD 01/05/2019 CAROLYN MONDRAGON DO Ot F41. 9 ANXIETY DISORDER, UNSPECIFIED 01/05/2019 CAROLYN MONDRAGON DO Ot I10 ESSENTIAL (PRIMARY) HYPERTENSION 01/05/2019 CAROLYN MONDRAGON DO Ot J44. 9 CHRONIC OBSTRUCTIVE PULMONARY DISEASE, U 01/05/2019 CAROLYN MONDRAGON DO Ot Z79.899 OTHER [facility] (CURRENT) DRUG THERAPY 01/10/2019 ALANNA DO, CAROLYN M Ot C34. 90 MALIGNANT NEOPLASM OF UNSP PART OF [facility] 01/10/2019 CAROLYN MONDRAGON DO Ot E78. 5 HYPERLIPIDEMIA, UNSPECIFIED 01/10/2019 CAROLYN MONDRAGON DO Ot F17.210 NICOTINE DEPENDENCE, CIGARETTES, UNCOMPL 01/10/2019 CAROLYN MONDRAGON DO Ot F32. 9 MAJOR DEPRESSIVE DISORDER, SINGLE EPISOD 01/10/2019 CAROLYN MONDRAGON DO Ot F41. 9 ANXIETY DISORDER, UNSPECIFIED 01/10/2019 CAROLYN MONDRAGON DO Ot I10 ESSENTIAL (PRIMARY) HYPERTENSION 01/10/2019 CAROLYN MONDRAGON DO Ot J44. 9 CHRONIC OBSTRUCTIVE PULMONARY DISEASE, U 01/10/2019 CAROLYN MONDRAGON DO Ot Z79.899 OTHER DIE MOUNTER (CURRENT) DRUG THERAPY 01/17/2019 BUTCH NORMAN Eriberto ELECTRICIAN YARD Ot R92.8 OTH ABN AND INCONCLUSIVE FINDINGS ON DX 01/17/2019 ISABELA WOOTEN APRN Ot C34.90 MALIGNANT NEOPLASM OF UNSP PART OF [facility] 01/17/2019 ISABELA WOOTEN APRN Ot J44.9 CHRONIC OBSTRUCTIVE PULMONARY DISEASE, U 01/17/2019 ISABELA WOOTEN APRN Ot J93.9 PNEUMOTHORAX, UNSPECIFIED 01/17/2019 ISABELA WOOTEN APRN Ot Z72.0 TOBACCO USE 01/25/2019 BUTCH NORMAN L ELECTRICIAN YARD Ot E27.8 OTHER SPECIFIED DISORDERS OF ADRENAL GLA 01/25/2019 NORMAN RAE ELECTRICIAN YARD Ot J98.4 OTHER DISORDERS OF LUNG 01/25/2019 EATNORMAN ALVARES ELECTRICIAN YARD Ot R91.8 OTHER NONSPECIFIC ABNORMAL FINDING OF [place] 01/25/2019 NORMAN RAE ELECTRICIAN YARD Ot R92.8 OTH ABN AND INCONCLUSIVE FINDINGS ON DX 01/25/2019 SALAS MEJIA MD Ot C34.11 MALIGNANT NEOPLASM OF UPPER LOBE, RIGHT 01/25/2019 SALAS MEJIA MD Ot F17.210 NICOTINE DEPENDENCE, CIGARETTES, UNCOMPL 01/25/2019 SALAS MEJIA MD Ot I10 ESSENTIAL (PRIMARY) HYPERTENSION 01/25/2019 SALAS MEJIA MD Ot J44.9 CHRONIC OBSTRUCTIVE PULMONARY DISEASE, U 01/25/2019 ISABELA WOOTEN APRN Ot C34.90 MALIGNANT NEOPLASM OF UNSP PART OF [facility] 01/25/2019 ISABELA WOOTEN APRN Ot J44.9 CHRONIC OBSTRUCTIVE PULMONARY DISEASE, U 01/25/2019 ISABELA WOOTEN APRN Ot J93.9 PNEUMOTHORAX, UNSPECIFIED 01/25/2019 ISABELA WOOTEN APRN Ot Z72.0 TOBACCO USE 01/25/2019 CAROLYN MONDRAGON DO Ot C34. 90 MALIGNANT NEOPLASM OF UNSP PART OF [facility] 01/25/2019 CAROLYN MONDRAGON DO Ot E78. 5 HYPERLIPIDEMIA, UNSPECIFIED 01/25/2019 CAROLYN MONDRAGON DO, Ot F17.210 NICOTINE DEPENDENCE, CIGARETTES, UNCOMPL 01/25/2019 CAROLYN MONDRAGON DO, Ot F32. 9 MAJOR DEPRESSIVE DISORDER, SINGLE EPISOD 01/25/2019 CAROLYN MONDRAGON DO, Ot F41. 9 ANXIETY DISORDER, UNSPECIFIED 01/25/2019 CAROLYN MONDRAGON DO Ot I10 ESSENTIAL (PRIMARY) HYPERTENSION 01/25/2019 CAROLYN MONDRAGON DO, Ot J44. 9 CHRONIC OBSTRUCTIVE PULMONARY DISEASE, U 01/25/2019 CAROLYN MONDRAGON DO Ot Z79.899 OTHER [facility] (CURRENT) DRUG THERAPY 01/25/2019 CAROLYN MONDRAGON DO, Ot Z01.818 ENCOUNTER FOR OTHER PREPROCEDURAL EXAMIN 01/29/2019 NORMAN RAE ELECTRICIAN YARD Ot E27.8 OTHER SPECIFIED DISORDERS OF ADRENAL GLA 01/29/2019 NORMAN RAE ELECTRICIAN YARD Ot J98.4 OTHER DISORDERS OF LUNG 01/29/2019 NORMAN RAE ELECTRICIAN YARD Ot R91.8 OTHER NONSPECIFIC ABNORMAL FINDING OF [place] 01/29/2019 NORMAN RAE ELECTRICIAN YARD Ot R92.8 OTH ABN AND INCONCLUSIVE FINDINGS ON DX 01/29/2019 SALAS MEJIA MD Ot C34.11 MALIGNANT NEOPLASM OF UPPER LOBE, RIGHT 01/29/2019 SALAS MEJIA MD Ot F17.210 NICOTINE DEPENDENCE, CIGARETTES, UNCOMPL 01/29/2019 SALAS MEJIA MD Ot I10 ESSENTIAL (PRIMARY) HYPERTENSION 01/29/2019 SALAS MEJIA MD Ot J44.9 CHRONIC OBSTRUCTIVE PULMONARY DISEASE, U 01/29/2019 ISABELA WOOTEN APRN Ot C34.90 MALIGNANT NEOPLASM OF UNSP PART OF [facility] 01/29/2019 ISABELA WOOTEN APRN Ot J44.9 CHRONIC OBSTRUCTIVE PULMONARY DISEASE, U 01/29/2019 ISABELA WOOTEN APRN Ot J93.9 PNEUMOTHORAX, UNSPECIFIED 01/29/2019 ISABELA WOOTEN APRN Ot Z72.0 TOBACCO USE 01/29/2019 CAROLYN MONDRAGON DO Ot C34. 90 MALIGNANT NEOPLASM OF [facility] PART OF [facility] 01/29/2019 CAROLYN MONDRAGON DO Ot E78. 5 HYPERLIPIDEMIA, UNSPECIFIED 01/29/2019 CAROLYN MONDRAGON DO Ot F17.210 NICOTINE DEPENDENCE, CIGARETTES, UNCOMPL 01/29/2019 CAROLYN MONDRAGON DO Ot F32. 9 MAJOR DEPRESSIVE DISORDER, SINGLE EPISOD 01/29/2019 CAROLYN MONDRAGON DO, Ot F41. 9 ANXIETY DISORDER, UNSPECIFIED 01/29/2019 CAROLYN MONDRAGON DO Ot I10 ESSENTIAL (PRIMARY) HYPERTENSION 01/29/2019 CAROLYN MONDRAGON DO, Ot J44. 9 CHRONIC OBSTRUCTIVE PULMONARY DISEASE, U 01/29/2019 CAROLYN MONDRAGON DO Ot Z79.899 OTHER DIE MOUNTER (CURRENT) DRUG THERAPY 01/29/2019 CAROLYN MONDRAGON DO, Ot Z01.818 ENCOUNTER FOR OTHER PREPROCEDURAL EXAMIN 01/29/2019 ISABELA WOOTEN APRN Ot C34.90 MALIGNANT NEOPLASM OF [facility] PART OF [facility] 01/29/2019 ISABELA WOOTEN APRN Ot J44.9 CHRONIC OBSTRUCTIVE PULMONARY DISEASE, U 01/29/2019 ISABELA WOOTEN APRN Ot R06.2 WHEEZING 01/29/2019 ISABELA WOOTEN APRN Ot R19.7 DIARRHEA, UNSPECIFIED 01/29/2019 ISABELA WOOTEN APRN Ot Z72.0 TOBACCO USE 01/29/2019 ISABELA WOOTEN APRN Ot Z87.09 PERSONAL HISTORY OF OTHER DISEASES OF TH 02/07/2019 NORMAN RAE ELECTRICIAN YARD Ot E27.8 OTHER SPECIFIED DISORDERS OF ADRENAL GLA 02/07/2019 NORMAN RAE ELECTRICIAN YARD Ot J98.4 OTHER DISORDERS OF LUNG 02/07/2019 NORMAN RAE ELECTRICIAN YARD Ot R91.8 OTHER NONSPECIFIC ABNORMAL FINDING OF [place] 02/07/2019 NORMAN RAE ELECTRICIAN YARD Ot R92.8 OTH ABN AND INCONCLUSIVE FINDINGS ON DX 02/07/2019 SALAS MEJIA MD Ot C34.11 MALIGNANT NEOPLASM OF UPPER LOBE, RIGHT 02/07/2019 SALAS MEJIA MD Ot F17.210 NICOTINE DEPENDENCE, CIGARETTES, UNCOMPL 02/07/2019 SALAS MEJIA MD Ot I10 ESSENTIAL (PRIMARY) HYPERTENSION 02/07/2019 SALAS MEJIA MD Ot J44.9 CHRONIC OBSTRUCTIVE PULMONARY DISEASE, U 02/07/2019 ISABELA WOOTEN APRN Ot C34.90 MALIGNANT NEOPLASM OF UNSP PART OF [facility] 02/07/2019 ISABELA WOOTEN APRN Ot J44.9 CHRONIC OBSTRUCTIVE PULMONARY DISEASE, U 02/07/2019 ISABELA WOOTEN APRN Ot J93.9 PNEUMOTHORAX, UNSPECIFIED 02/07/2019 ISABELA WOOTEN APRN Ot Z72.0 TOBACCO USE 02/07/2019 CAROLYN MONDRAGON DO Ot C34. 90 MALIGNANT NEOPLASM OF UNSP PART OF [facility] 02/07/2019 CAROLYN MONDRAGON DO, Ot E78. 5 HYPERLIPIDEMIA, UNSPECIFIED 02/07/2019 CAROLYN MONDRAGON DO Ot F17.210 NICOTINE DEPENDENCE, CIGARETTES, UNCOMPL 02/07/2019 CAROLYN MONDRAGON DO Ot F32. 9 MAJOR DEPRESSIVE DISORDER, SINGLE EPISOD 02/07/2019 CAROLYN MONDRAGON DO Ot F41. 9 ANXIETY DISORDER, UNSPECIFIED 02/07/2019 CAROLYN MONDRAGON DO Ot I10 ESSENTIAL (PRIMARY) HYPERTENSION 02/07/2019 CAROLYN MONDRAGON DO Ot J44. 9 CHRONIC OBSTRUCTIVE PULMONARY DISEASE, U 02/07/2019 CAROLYN MONDRAGON DO Ot Z79.899 OTHER DIE MOUNTER (CURRENT) DRUG THERAPY 02/07/2019 CAROLYN MONDRAGON DO Ot Z01.818 ENCOUNTER FOR OTHER PREPROCEDURAL EXAMIN 02/07/2019 ISABELA WOOTEN APRN Ot C34.90 MALIGNANT NEOPLASM OF UNSP PART OF [facility] 02/07/2019 ISABELA WOOTEN APRN Ot J44.9 CHRONIC OBSTRUCTIVE PULMONARY DISEASE, U 02/07/2019 ISABELA WOOTEN ADMINISTRATIVE SECRETARY Ot R06.2 WHEEZING 02/07/2019 ISABELA WOOTEN ADMINISTRATIVE SECRETARY Ot R19.7 DIARRHEA, UNSPECIFIED 02/07/2019 ISABELA WOOTEN ADMINISTRATIVE SECRETARY Ot Z72.0 TOBACCO USE 02/07/2019 ISABELA WOOTEN APRN Ot Z87.09 PERSONAL HISTORY OF OTHER DISEASES OF 02/07/2019 ISABELA WOOTEN APRN Ot C34.90 MALIGNANT NEOPLASM OF UNSP PART OF [facility] 02/07/2019 ISABELA WOOTEN APRN Ot J44.9 CHRONIC OBSTRUCTIVE PULMONARY DISEASE, U 02/07/2019 ISABELA WOOTEN APRN Ot R06.2 WHEEZING 02/07/2019 ISABELA WOOTEN APRN Ot R19.7 DIARRHEA, UNSPECIFIED 02/07/2019 ISABELA WOOTEN APRN Ot Z72.0 TOBACCO USE 02/07/2019 ISABELA WOOTEN APRN Ot Z87.09 PERSONAL HISTORY OF OTHER DISEASES OF 02/08/2019 ISABELA WOOTEN APRN Ot C34.90 MALIGNANT NEOPLASM OF [facility] PART OF [facility] 02/08/2019 ISABELA WOOTEN APRN Ot J44.9 CHRONIC OBSTRUCTIVE PULMONARY DISEASE, U 02/08/2019 ISABELA WOOTEN APRN Ot R06.2 WHEEZING 02/08/2019 ISABELA WOOTEN APRN Ot R19.7 DIARRHEA, UNSPECIFIED 02/08/2019 ISABELA WOOTEN APRN Ot Z72.0 TOBACCO USE 02/08/2019 ISABELA WOOTEN APRN Ot Z87.09 PERSONAL HISTORY OF OTHER DISEASES OF 02/28/2019 CAROLYN MONDRAGON DO Ot C34. 90 MALIGNANT NEOPLASM OF [facility] PART OF [facility] 02/28/2019 CAROLYN MONDRAGON DO Ot E78. 5 HYPERLIPIDEMIA, UNSPECIFIED 02/28/2019 CAROLYN MONDRAGON DO Ot F17.210 NICOTINE DEPENDENCE, CIGARETTES, UNCOMPL 02/28/2019 CAROLYN MONDRAGON DO Ot F32. 9 MAJOR DEPRESSIVE DISORDER, SINGLE EPISOD 02/28/2019 CAROLYN MONDRAGON DO Ot F41. 9 ANXIETY DISORDER, UNSPECIFIED 02/28/2019 CAROLYN MONDRAGON DO Ot I10 ESSENTIAL (PRIMARY) HYPERTENSION 02/28/2019 CAROLYN MONDRAGON DO Ot J44. 9 CHRONIC OBSTRUCTIVE PULMONARY DISEASE, U 02/28/2019 CAROLYN MONDRAGON DO Ot Z79.899 OTHER [facility] (CURRENT) DRUG THERAPY 03/06/[address] [facility] Ot E27.8 OTHER SPECIFIED DISORDERS OF ADRENAL GLA 03/06/2019 NORMAN RAE ELECTRICIAN YARD Ot J98.4 OTHER DISORDERS OF LUNG 03/06/2019 NORMAN RAE ELECTRICIAN YARD Ot R91.8 OTHER NONSPECIFIC ABNORMAL FINDING OF [place] 03/06/2019 NORMAN RAE ELECTRICIAN YARD Ot R92.8 OTH ABN AND INCONCLUSIVE FINDINGS ON DX 03/06/2019 SALAS MEJIA MD Ot C34.11 MALIGNANT NEOPLASM OF UPPER LOBE, RIGHT 03/06/2019 SALAS MEJIA MD Ot F17.210 NICOTINE DEPENDENCE, CIGARETTES, UNCOMPL 03/06/2019 SALAS MEJIA MD Ot I10 ESSENTIAL (PRIMARY) HYPERTENSION 03/06/2019 SALAS MEJIA MD Ot J44.9 CHRONIC OBSTRUCTIVE PULMONARY DISEASE, U 03/06/2019 ISABELA WOOTEN APRN Ot C34.90 MALIGNANT NEOPLASM OF UNSP PART OF [facility] 03/06/2019 ISABELA WOOTEN APRN, Ot J44.9 CHRONIC OBSTRUCTIVE PULMONARY DISEASE, U 03/06/2019 ISABELA WOOTEN APRN Ot J93.9 PNEUMOTHORAX, UNSPECIFIED 03/06/2019 ISABELA WOOTEN APRN Ot Z72.0 TOBACCO USE 03/06/2019 CAROLYN MONDRAGON DO, Ot C34. 90 MALIGNANT NEOPLASM OF UNSP PART OF [facility] 03/06/2019 CAROLYN MONDRAGON DO Ot E78. 5 HYPERLIPIDEMIA, UNSPECIFIED 03/06/2019 CAROLYN MONDRAGON DO Ot F17.210 NICOTINE DEPENDENCE, CIGARETTES, UNCOMPL 03/06/2019 CAROLYN MONDRAGON DO Ot F32. 9 MAJOR DEPRESSIVE DISORDER, SINGLE EPISOD 03/06/2019 CAROLYN MONDRAGON DO Ot F41. 9 ANXIETY DISORDER, UNSPECIFIED 03/06/2019 CAROLYN MONDRAGON DO Ot I10 ESSENTIAL (PRIMARY) HYPERTENSION 03/06/2019 CAROLYN MONDRAGON DO, Ot J44. 9 CHRONIC OBSTRUCTIVE PULMONARY DISEASE, U 03/06/2019 CAROLYN MONDRAGON DO Ot Z79.899 OTHER DIE MOUNTER (CURRENT) DRUG THERAPY 03/06/2019 CAROLYN MONDRAGON DO, Ot Z01.818 ENCOUNTER FOR OTHER PREPROCEDURAL EXAMIN 03/06/2019 ISABELA WOOTEN APRN Ot C34.90 MALIGNANT NEOPLASM OF UNSP PART OF [facility] 03/06/2019 ISABELA WOOTEN APRN, Ot J44.9 CHRONIC OBSTRUCTIVE PULMONARY DISEASE, U 03/06/2019 ISABELA WOOTEN APRN Ot R06.2 WHEEZING 03/06/2019 ISABELA WOOTEN APRN Ot R19.7 DIARRHEA, UNSPECIFIED 03/06/2019 ISABELA WOOTEN APRN Ot Z72.0 TOBACCO USE 03/06/2019 ISABELA WOOTEN APRN Ot Z87.09 PERSONAL HISTORY OF OTHER DISEASES OF 03/06/2019 ISABELA WOOTEN APRN Ot J44.9 CHRONIC OBSTRUCTIVE PULMONARY DISEASE, U 03/06/2019 ISABELA WOOTEN APRN Ot R06.2 WHEEZING 03/06/2019 ISABELA WOOTEN APRN Ot Z72.0 TOBACCO USE 03/06/2019 ISABELA WOOTEN APRN Ot Z87.09 PERSONAL HISTORY OF OTHER DISEASES OF 03/06/2019 CAROLYN MONDRAGON DO Ot C34. 90 MALIGNANT NEOPLASM OF UNSP PART OF [facility] 03/06/2019 CAROLYN MONDRAGON DO Ot E78. 5 HYPERLIPIDEMIA, UNSPECIFIED 03/06/2019 CAROLYN MONDRAGON DO Ot F17.210 NICOTINE DEPENDENCE, CIGARETTES, UNCOMPL 03/06/2019 CAROLYN MONDRAGON DO, Ot F32. 9 MAJOR DEPRESSIVE DISORDER, SINGLE EPISOD 03/06/2019 CAROLYN MONDRAGON DO, Ot F41. 9 ANXIETY DISORDER, UNSPECIFIED 03/06/2019 CAROLYN MONDRAGON DO Ot I10 ESSENTIAL (PRIMARY) HYPERTENSION 03/06/2019 CAROLYN MONDRAGON DO, Ot J44. 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 NEOPLASM OF UPPER LOBE, RIGHT 03/06/2019 SALAS MEJIA MD Ot F17.210 NICOTINE DEPENDENCE, CIGARETTES, UNCOMPL 03/06/2019 SALAS MEJIA MD Ot I10 ESSENTIAL (PRIMARY) HYPERTENSION 03/06/2019 SALAS MEJIA MD Ot J44.9 CHRONIC OBSTRUCTIVE PULMONARY DISEASE, U 03/07/2019 EATNORMAN ALVARES L ELECTRICIAN YARD Ot E27.8 OTHER SPECIFIED DISORDERS OF ADRENAL GLA 03/07/2019 EATNORMAN ALVARES L ELECTRICIAN YARD Ot J98.4 OTHER DISORDERS OF LUNG 03/07/2019 EATONROBELNORMAN L ELECTRICIAN YARD Ot R91.8 OTHER NONSPECIFIC ABNORMAL FINDING OF [place] 03/16/2019 EATNORMAN ALVARES L ELECTRICIAN YARD Ot E27.8 OTHER SPECIFIED DISORDERS OF ADRENAL GLA 03/16/2019 EATNORMAN ALVARES L ELECTRICIAN YARD Ot J98.4 OTHER DISORDERS OF LUNG 03/16/2019 EATNORMAN ALVARES L ELECTRICIAN YARD Ot R91.8 OTHER NONSPECIFIC ABNORMAL FINDING OF [place] 03/16/2019 EATNORMAN ALVARES L ELECTRICIAN YARD Ot R92.8 OTH ABN AND INCONCLUSIVE FINDINGS ON DX 03/16/2019 SALAS MEJIA MD, Ot C34.11 MALIGNANT NEOPLASM OF UPPER LOBE, RIGHT 03/16/2019 SALAS MEJIA MD Ot F17.210 NICOTINE DEPENDENCE, CIGARETTES, UNCOMPL 03/16/2019 SALAS MEJIA MD, Ot I10 ESSENTIAL (PRIMARY) HYPERTENSION 03/16/2019 SALAS MEJIA MD Ot J44.9 CHRONIC OBSTRUCTIVE PULMONARY DISEASE, U 03/16/2019 ISABELA WOOTEN APRN Ot C34.90 MALIGNANT NEOPLASM OF UNSP PART OF UNSP 03/16/2019 ISABELA WOOTEN APRN Ot J44.9 CHRONIC OBSTRUCTIVE PULMONARY DISEASE, U 03/16/2019 ISABELA WOOTEN APRN Ot J93.9 PNEUMOTHORAX, UNSPECIFIED 03/16/2019 ISABELA WOOTEN APRN Ot Z72.0 TOBACCO USE 03/20/2019 SALAS MEJIA MD Ot C34.11 MALIGNANT NEOPLASM OF UPPER LOBE, RIGHT 03/20/2019 SALAS MEJIA MD Ot F17.210 NICOTINE DEPENDENCE, CIGARETTES, UNCOMPL 03/20/2019 SALAS MEJIA MD Ot I10 ESSENTIAL (PRIMARY) HYPERTENSION 03/20/2019 SALAS MEJIA MD, Ot J44.9 CHRONIC OBSTRUCTIVE PULMONARY DISEASE, U 03/23/2019 SALAS MEJIA MD Ot C34.11 MALIGNANT NEOPLASM OF UPPER LOBE, RIGHT 03/23/2019 SALAS MEJIA MD Ot F17.210 NICOTINE DEPENDENCE, CIGARETTES, UNCOMPL 03/23/2019 SALAS MEJIA MD Ot I10 ESSENTIAL (PRIMARY) HYPERTENSION 03/23/2019 SALAS MEJIA MD Ot J44.9 CHRONIC OBSTRUCTIVE PULMONARY DISEASE, U 03/27/2019 CAROLYN MONDRAGON DO Ot C34. 90 MALIGNANT NEOPLASM OF UNSP PART OF UNSP 03/27/2019 CAROLYN MONDRAGON DO Ot E78. 5 HYPERLIPIDEMIA, UNSPECIFIED 03/27/2019 CAROLYN MONDRAGON DO, Ot F17.210 NICOTINE DEPENDENCE, CIGARETTES, UNCOMPL 03/27/2019 CAROLYN MONDRAGON DO, Ot F32. 9 MAJOR DEPRESSIVE DISORDER, SINGLE EPISOD 03/27/2019 CAROLYN MONDRAGON DO, Ot F41. 9 ANXIETY DISORDER, UNSPECIFIED 03/27/2019 CAROLYN MONDRAGON DO, Ot I10 ESSENTIAL (PRIMARY) HYPERTENSION 03/27/2019 CAROLYN MONDRAGON DO, Ot J44. 9 CHRONIC OBSTRUCTIVE PULMONARY DISEASE, U 03/27/2019 CAROLYN MONDRAGON DO Ot Z79.899 OTHER DIE MOUNTER (CURRENT) DRUG THERAPY 04/02/2019 SALAS MEJIA MD Ot C34.11 MALIGNANT NEOPLASM OF UPPER LOBE, RIGHT 04/02/2019 SALAS MEJIA MD Ot F17.210 NICOTINE DEPENDENCE, CIGARETTES, UNCOMPL 04/02/2019 SALAS MEJIA MD Ot I10 ESSENTIAL (PRIMARY) HYPERTENSION 04/02/2019 SALAS MEJIA MD Ot J44.9 CHRONIC OBSTRUCTIVE PULMONARY DISEASE, U 04/16/2019 ISABELA WOOTEN APRN Ot J44.9 CHRONIC OBSTRUCTIVE PULMONARY DISEASE, U 04/16/2019 ISABELA WOOTEN APRN Ot R06.2 WHEEZING 04/16/2019 ISABELA WOOTEN APRN Ot Z72.0 TOBACCO USE 04/16/2019 ISABELA WOOTEN APRN Ot Z87.09 PERSONAL HISTORY OF OTHER DISEASES OF TH 04/18/2019 ISABELA WOOTEN APRN Ot C34.11 MALIGNANT NEOPLASM OF UPPER LOBE, RIGHT 04/18/2019 ISABELA WOOTEN APRN Ot J44.9 CHRONIC OBSTRUCTIVE PULMONARY DISEASE, U 04/18/2019 SUGAR, ISABELA E ADMINISTRATIVE SECRETARY Ot Z72.0 TOBACCO USE 04/18/2019 ISABELA WOOTEN ADMINISTRATIVE SECRETARY Ot Z87.09 PERSONAL HISTORY OF OTHER DISEASES OF TH 05/04/2019 SALAS MEJIA MD Ot C34.11 MALIGNANT NEOPLASM OF UPPER LOBE, RIGHT 05/04/2019 SALAS MEJIA MD Ot F17.210 NICOTINE DEPENDENCE, CIGARETTES, UNCOMPL 05/04/2019 SALAS MEJIA MD Ot I10 ESSENTIAL (PRIMARY) HYPERTENSION 05/04/2019 SALAS MEJIA MD Ot J44.9 CHRONIC OBSTRUCTIVE PULMONARY DISEASE, U 05/07/2019 ISABELA WOOTEN APRN Ot C34.11 MALIGNANT NEOPLASM OF UPPER LOBE, RIGHT 05/07/2019 ISABELA WOOTEN APRN Ot J44.9 CHRONIC OBSTRUCTIVE PULMONARY DISEASE, U 05/07/2019 ISABELA WOOTEN APRN Ot Z72.0 TOBACCO USE 05/07/2019 ISABELA WOOTEN APRN Ot Z87.09 PERSONAL HISTORY OF OTHER DISEASES OF 05/11/2019 SALAS MEJIA MD Ot C34.11 MALIGNANT NEOPLASM OF UPPER LOBE, RIGHT 05/11/2019 SALAS MEJIA MD Ot F17.210 NICOTINE DEPENDENCE, CIGARETTES, UNCOMPL 05/11/2019 SALAS MEJIA MD Ot I10 ESSENTIAL (PRIMARY) HYPERTENSION 05/11/2019 SALAS MEJIA MD Ot J44.9 CHRONIC OBSTRUCTIVE PULMONARY DISEASE, U 06/03/2019 ISABELA WOOTEN APRN Ot J44.9 CHRONIC OBSTRUCTIVE PULMONARY DISEASE, U 06/03/2019 ISABELA WOOTEN ADMINISTRATIVE SECRETARY Ot R06.2 WHEEZING 06/03/2019 ISABELA WOOTEN APRN Ot Z72.0 TOBACCO USE 06/03/2019 ISABELA WOOTEN APRN Ot Z87.09 PERSONAL HISTORY OF OTHER DISEASES OF 08/07/2019 SALAS MEJIA MD Ot C34.11 MALIGNANT NEOPLASM OF UPPER LOBE, RIGHT 08/07/2019 SALAS MEJIA MD Ot F17.210 NICOTINE DEPENDENCE, CIGARETTES, UNCOMPL 08/07/2019 SALAS MEJIA MD Ot I10 ESSENTIAL (PRIMARY) HYPERTENSION 08/07/2019 SALAS MEJIA MD Ot J44.9 CHRONIC OBSTRUCTIVE PULMONARY DISEASE, U 08/07/2019 SALAS MEJIA MD Ot Z79.899 OTHER [facility] (CURRENT) DRUG THERAPY 08/08/2019 SALAS MEJIA MD Ot C34.11 MALIGNANT NEOPLASM OF UPPER LOBE, RIGHT 08/08/2019 SALAS MEJIA MD Ot F17.210 NICOTINE DEPENDENCE, CIGARETTES, UNCOMPL 08/08/2019 SALAS MEJIA MD Ot I10 ESSENTIAL (PRIMARY) HYPERTENSION 08/08/2019 SALAS MEJIA MD Ot J44.9 CHRONIC OBSTRUCTIVE PULMONARY DISEASE, U 08/08/2019 SALAS MEJIA MD Ot Z79.899 OTHER [facility] (CURRENT) DRUG THERAPY 11/15/2019 SALAS MEJIA MD Ot R91.1 SOLITARY PULMONARY NODULE 11/15/2019 SALAS MEJIA MD Ot Z85.118 PERSONAL HISTORY OF MALIGNANT NEOPLASM O 11/15/2019 SALAS MEJIA MD Ot Z98.890 OTHER SPECIFIED POSTPROCEDURAL STATES 11/26/2019 SALAS MEJIA MD Ot C34.11 MALIGNANT NEOPLASM OF UPPER LOBE, RIGHT 11/26/2019 SALAS MEJIA MD Ot F17.210 NICOTINE DEPENDENCE, CIGARETTES, UNCOMPL 11/26/2019 SALAS MEJIA MD Ot I10 ESSENTIAL (PRIMARY) HYPERTENSION 11/26/2019 SALAS MEJIA MD Ot J44.9 CHRONIC OBSTRUCTIVE PULMONARY DISEASE, U 11/26/2019 SALAS MEJIA MD Ot Z79.899 OTHER DIE [facility]OUNTER (CURRENT) DRUG THERAPY 12/31/2019 ISABELA WOOTEN APRN Ot C34.11 MALIGNANT NEOPLASM OF UPPER LOBE, RIGHT 12/31/2019 ISABELA WOOTEN ADMINISTRATIVE SECRETARY Ot J44.9 CHRONIC OBSTRUCTIVE PULMONARY DISEASE, U 12/31/2019 ISABELA WOOTEN ADMINISTRATIVE SECRETARY Ot Z72.0 TOBACCO USE 12/31/2019 ISABELA WOOTEN ADMINISTRATIVE SECRETARY Ot Z87.09 PERSONAL HISTORY OF OTHER DISEASES OF TH 12/31/2019 SALAS MEJIA MD Ot R91.1 SOLITARY PULMONARY NODULE 12/31/2019 SALAS MEJIA MD Ot Z85.118 PERSONAL HISTORY OF MALIGNANT NEOPLASM O 12/31/2019 SALAS MEJIA MD Ot Z98.890 OTHER SPECIFIED POSTPROCEDURAL STATES 12/31/2019 ISABELA WOOTEN ADMINISTRATIVE SECRETARY Ot J44.9 CHRONIC OBSTRUCTIVE PULMONARY DISEASE, U 12/31/2019 ISABELA WOOTEN ADMINISTRATIVE SECRETARY Ot R06.2 WHEEZING 12/31/2019 ISABELA WOOTEN ADMINISTRATIVE SECRETARY Ot Z72.0 TOBACCO USE 12/31/2019 ISABELA WOOTEN ADMINISTRATIVE SECRETARY Ot Z87.09 PERSONAL HISTORY OF OTHER DISEASES OF TH 01/03/2020 BRANDON WALTON APRN Ot F10.129 ALCOHOL ABUSE WITH INTOXICATION, UNSPECI 01/03/2020 BRANDON WALTON APRN Ot F17.210 NICOTINE DEPENDENCE, CIGARETTES, UNCOMPL 01/03/2020 BRANDON WALTON APRN Ot F32 .9 MAJOR DEPRESSIVE DISORDER, SINGLE EPISOD 01/03/2020 BRANDON WALTON APRN Ot F41 .9 ANXIETY DISORDER, UNSPECIFIED 01/03/2020 BRANDON WALTON APRN Ot I10 ESSENTIAL (PRIMARY) HYPERTENSION 01/03/2020 BRANDON WALTON APRN Ot J44 .1 CHRONIC OBSTRUCTIVE PULMONARY DISEASE W 01/03/2020 BRANDON WALTON APRN Ot R06.02 SHORTNESS OF BREATH 01/03/2020 BRANDON WALTON APRN Ot Y90 .8 BLOOD ALCOHOL LEVEL OF 240 MG/100 ML OR 01/03/2020 BRANDON WALTON APRN Ot Z82.49 FAMILY HX OF ISCHEM HEART DIS AND OTH DI 01/03/2020 BRANDON WALTON APRN Ot Z85.118 PERSONAL HISTORY OF MALIGNANT NEOPLASM O 01/03/2020 BRANDON WALTON APRN Ot Z87.442 PERSONAL HISTORY OF URINARY CALCULI 02/11/2020 SALAS MEJIA MD Ot C34.11 MALIGNANT NEOPLASM OF UPPER LOBE, RIGHT 02/11/2020 SALAS MEJIA MD Ot F17.210 NICOTINE DEPENDENCE, CIGARETTES, UNCOMPL 02/11/2020 SALAS MEJIA MD Ot I10 ESSENTIAL (PRIMARY) HYPERTENSION 02/11/2020 SALAS MEJIA MD Ot J44.9 CHRONIC OBSTRUCTIVE PULMONARY DISEASE, U 02/11/2020 SALAS MEJIA MD Ot Z79.899 OTHER [facility] (CURRENT) DRUG THERAPY 02/13/2020 SALAS MEJIA MD Ot C34.11 MALIGNANT NEOPLASM OF UPPER LOBE, RIGHT 02/13/2020 SALAS MEJIA MD Ot F17.210 NICOTINE DEPENDENCE, CIGARETTES, UNCOMPL 02/13/2020 SALAS MEJIA MD Ot I10 ESSENTIAL (PRIMARY) HYPERTENSION 02/13/2020 SALAS MEJIA MD Ot J44.9 CHRONIC OBSTRUCTIVE PULMONARY DISEASE, U 02/13/2020 SALAS MEJIA MD Ot Z79.899 OTHER [facility] (CURRENT) DRUG THERAPY Procedures Code Description Performed By Per formed On [id number] DR JARVIS OF R PLEURAL CAV WITH DRAIN DEV 12/27/[id number] JARVIS OF RIGHT PLEURAL CAVITY, PERCUT 12/27/2018 Results Test Result Range CBC With Differential/Platelet - 7 08:30 WBC 6.2 x10E3/uL 3.4-10.8 RBC 4.98 x10E6/uL 4.14-5.80 Hemoglobin 15.4 g/dL 12.6-17.7 Hematocrit 46.6 % 37.5-51.0 MCV 94 fL 79-97 MCH 30.9 pg 26.6-33.0 MCHC 33.0 g/dL 31.5-35.7 RDW 13.4 % 12.3-15.4 Platelets 157 x10E3/uL 150-379 Neutrophils 67 % Lymphs 24 % Monocytes 7 % Eos 2 % Basos 0 % Neutrophils (Absolute) 4.2 x10E3/uL 1.4- 7.0 Lymphs (Absolute) 1.5 x10E3/uL 0.7-3.1 Monocytes(Absolute) 0.4 x10E3/uL 0.1-0.9 Eos (Absolute) 0.1 x10E3/uL 0.0-0.4 Baso (Absolute) 0.0 x10E3/uL 0.0-0.2 Immature Granulocytes 0 % Immature Grans (Abs) 0.0 x10E3/uL 0.0-0. 1 Comp. Metabolic Panel (14) - 06/20/17 08 :30 Glucose, Serum 94 mg/dL 65-99 BUN 13 mg/dL 6-24 Creatinine, Serum 0.89 mg/dL 0.76-1.27 eGFR If NonAfricn Am 96 mL/min/1.73 >59 eGFR If Africn Am 110 mL/min/1.73 >5 9 BUN/Creatinine Ratio 15 9-20 Sodium, Serum 142 mmol/L 134-144 Potassium, Serum 4.0 mmol/L 3.5-5.2 Chloride, Serum 101 mmol/L 96-106 Carbon Dioxide, Total 25 mmol/L 18-29 Calcium, Serum 9.1 mg/dL 8.7-10.2 Protein, Total, Serum 6.8 g/dL 6.0-8.5 Albumin, Serum 4.2 g/dL 3.5-5.5 Globulin, Total 2.6 g/dL 1.5-4.5 A/G Ratio 1.6 1.2-2.2 Bilirubin, Total 0.7 mg/dL 0.0-1.2 Alkaline Phosphatase, S 54 IU/L 39-117 AST (SGOT) 21 IU/L 0-40 ALT (SGPT) 20 IU/L 0-44 Lipid Panel - 06/20/17 08:30 Cholesterol, Total 181 mg/dL 100-199 Triglycerides 138 mg/dL 0-149 HDL Cholesterol 33 mg/dL >39 VLDL Cholesterol Giancarlo 28 mg/dL 5-40 LDL Cholesterol Calc 120 mg/dL 0-99 Complete blood count (CBC) with automate d white blood cell (WBC) differential - 07/22/17 16:05 Blood leukocytes automated count (number/volume) 6.8 10*3/uL 4.3-11.0 Blood erythrocytes automated count (number/volume) 5.02 10*6/uL 4.35-5.85 Venous blood hemoglobin measurement (mass/volume) 15.8 g/dL 13.3-17.7 Blood hematocrit (volume fraction) 45 % 40-54 Automated erythrocyte mean corpuscular volume 89 [ foz_us] 80-99 Automated erythrocyte mean corpuscular h emoglobin (mass per erythrocyte) 32 pg 25-34 Automated erythrocyte mean corpuscular h emoglobin concentration measurement (mass/volume) 35 g/dL 32-36 Automated erythrocyte distribution width ratio 12. 7 % 10.0- 14.5 Automated blood platelet count (count/volume) 131 10*3/uL 130-400 Automated blood platelet mean volume measurement 10.3 [foz_us] 7.4-10.4 Automated blood neutrophils/100 leukocytes 71 % 42-75 Automated blood lymphocytes/100 leukocytes 19 % 12-44 Blood monocytes/100 leukocytes 9 % 0-12 Automated blood eosinophils/100 leukocytes 1 % 0-10 Automated blood basophils/100 leukocytes 0 % 0-10 Blood neutrophils automated count (number/volume) 4.9 10*3 1.8-7.8 Blood lymphocytes automated count (number/volume) 1.3 10*3 1.0-4.0 Blood monocytes automated count (number/volume) 0. 6 10*3 0.0-1.0 Automated eosinophil count 0.1 10*3/uL 0 .0-0.3 Automated blood basophil count (count/volume) 0.0 10*3/uL 0.0-0.1 PT panel in platelet poor plasma by coag ulation assay - 07/22/17 16:05 Prothrombin time (PT) in platelet poor plasma by coagu lation assay 12.2 s 12.2-14.7 INR in platelet poor plasma or blood by coagulation as say 0.9 0.8-1.4 Activated partial thromboplastin time (a PTT) in platelet poor plasma bycoagulation assay - 07/22/17 16:05 Activated partial thromboplastin time (a PTT) in platelet poor plasma bycoagulation assay 26 s 24-35 Comprehensive metabolic panel - 07/22/17 16:05 Serum or plasma sodium measurement (moles/volume) 136 mmol/L 135-145 Serum or plasma potassium measurement (moles/volume) 3.3 mmol/L 3.6-5.0 Serum or plasma chloride measurement (moles/volume) 103 mmol/L 98-107 Carbon dioxide 25 mmol/L 21-32 Serum or plasma anion gap determination (moles/volume) 8 mmol/L 5-14 Serum or plasma urea nitrogen measurement (mass/volume ) 10 mg/dL 7-18 Serum or plasma creatinine measurement (mass/volume) 0.80 mg/dL 0.60-1.30 Serum or plasma urea nitrogen/creatinine mass ratio 13 NRG Serum or plasma creatinine measurement w ith calculation of estimated glomerular filtration rate > NRG Serum or plasma glucose measurement (mass/volume) 111 mg/dL 70-105 Serum or plasma calcium measurement (mass/volume) 8.9 mg/dL 8.5-10.1 Serum or plasma total bilirubin measurement (mass/volu me) 2.4 mg/dL 0.1-1.0 Serum or plasma alkaline phosphatase zak surement (enzymatic activity/volume) 58 U/L 40-136 Serum or plasma aspartate aminotransfera se measurement (enzymatic activity/volume) 17 U/L 5-34 Serum or plasma alanine aminotransferase measurement (enzymatic activity/volume) 20 U/L 0-55 Serum or plasma protein measurement (mass/volume) 7.4 g/dL 6.4-8.2 Serum or plasma albumin measurement (mass/volume) 4.2 g/dL 3.2-4.5 Magnesium - 07/22/17 16:05 Magnesium 1.9 mg/dL 1.8-2.4 Serum or plasma lithium measurement (mol es/volume) - 07/22/17 16:05 BNP level 20.1 pg/mL <100.0 Serum or plasma troponin i.cardiac measu rement (mass/volume) - 07/22/17 16:05 Serum or plasma troponin i.cardiac measurement (mass/v olume) < ng/mL <0.30 Myoglobin, serum - 07/22/17 16:05 Myoglobin, serum 36.1 ng/mL 10.0-92.0 Automated blood complete blood count (he mogram) panel - 12/13/18 08:45 Blood leukocytes automated count (number/volume) 7.2 10*3/uL 4.3-11.0 Blood erythrocytes automated count (number/volume) 4.81 10*6/uL 4.35-5.85 Venous blood hemoglobin measurement (mass/volume) 14.6 g/dL 13.3-17.7 Blood hematocrit (volume fraction) 44 % 40-54 Automated erythrocyte mean corpuscular volume 92 [ foz_us] 80-99 Automated erythrocyte mean corpuscular h emoglobin (mass per erythrocyte) 30 pg 25-34 Automated erythrocyte mean corpuscular h emoglobin concentration measurement (mass/volume) 33 g/dL 32-36 Automated erythrocyte distribution width ratio 14. 2 % 10.0- 14.5 Automated blood platelet count (count/volume) 151 10*3/uL 130-400 Automated blood platelet mean volume measurement 9.3 [foz_us] 7.4-10.4 PT panel in platelet poor plasma by coag ulation assay - 12/13/18 08:45 Prothrombin time (PT) in platelet poor plasma by coagu lation assay 12.1 s 12.2-14.7 INR in platelet poor plasma or blood by coagulation as say 0.9 0.8-1.4 Activated partial thromboplastin time (a PTT) in platelet poor plasma bycoagulation assay - 12/13/18 08:45 Activated partial thromboplastin time (a PTT) in platelet poor plasma bycoagulation assay 28 s 24-35 Methicillin resistant Staphylococcus aur eus (MRSA) screening culture - 12/26/18 17:15 Methicillin resistant Staphylococcus aureus (MRSA) scr eening culture NEG NRG Complete blood count (CBC) with automate d white blood cell (WBC) differential - 12/26/18 17:30 Blood leukocytes automated count (number/volume) 9.0 10*3/uL 4.3-11.0 Blood erythrocytes automated count (number/volume) 4.91 10*6/uL 4.35-5.85 Venous blood hemoglobin measurement (mass/volume) 15.4 g/dL 13.3-17.7 Blood hematocrit (volume fraction) 45 % 40-54 Automated erythrocyte mean corpuscular volume 91 [ foz_us] 80-99 Automated erythrocyte mean corpuscular h emoglobin (mass per erythrocyte) 31 pg 25-34 Automated erythrocyte mean corpuscular h emoglobin concentration measurement (mass/volume) 35 g/dL 32-36 Automated erythrocyte distribution width ratio 13. 8 % 10.0- 14.5 Automated blood platelet count (count/volume) 173 10*3/uL 130-400 Automated blood platelet mean volume measurement 10.4 [foz_us] 7.4-10.4 Automated blood neutrophils/100 leukocytes 93 % 42-75 Automated blood lymphocytes/100 leukocytes 6 % 12-44 Blood monocytes/100 leukocytes 1 % 0-12 Automated blood eosinophils/100 leukocytes 0 % 0-10 Automated blood basophils/100 leukocytes 0 % 0-10 Blood neutrophils automated count (number/volume) 8.3 10*3 1.8-7.8 Blood lymphocytes automated count (number/volume) 0.6 10*3 1.0-4.0 Blood monocytes automated count (number/volume) 0. 1 10*3 0.0-1.0 Automated eosinophil count 0.0 10*3/uL 0 .0-0.3 Automated blood basophil count (count/volume) 0.0 10*3/uL 0.0-0.1 Comprehensive metabolic panel - 12/26/18 17:30 Serum or plasma sodium measurement (moles/volume) 137 mmol/L 135-145 Serum or plasma potassium measurement (moles/volume) 4.1 mmol/L 3.6-5.0 Serum or plasma chloride measurement (moles/volume) 104 mmol/L 98-107 Carbon dioxide 24 mmol/L 21-32 Serum or plasma anion gap determination (moles/volume) 9 mmol/L 5-14 Serum or plasma urea nitrogen measurement (mass/volume ) 13 mg/dL 7-18 Serum or plasma creatinine measurement (mass/volume) 0.89 mg/dL 0.60-1.30 Serum or plasma urea nitrogen/creatinine mass ratio 15 NRG Serum or plasma creatinine measurement w ith calculation of estimated glomerular filtration rate > NRG Serum or plasma glucose measurement (mass/volume) 119 mg/dL 70-105 Serum or plasma calcium measurement (mass/volume) 9.3 mg/dL 8.5-10.1 Serum or plasma total bilirubin measurement (mass/volu me) 0.6 mg/dL 0.1-1.0 Serum or plasma alkaline phosphatase zak surement (enzymatic activity/volume) 55 U/L 40-136 Serum or plasma aspartate aminotransfera se measurement (enzymatic activity/volume) 23 U/L 5-34 Serum or plasma alanine aminotransferase measurement (enzymatic activity/volume) 20 U/L 0-55 Serum or plasma protein measurement (mass/volume) 7.5 g/dL 6.4-8.2 Serum or plasma albumin measurement (mass/volume) 4.5 g/dL 3.2-4.5 CALCIUM CORRECTED 8.9 mg/dL 8.5-10.1 Serum or plasma phosphate measurement (m ass/volume) - 12/26/18 17:30 Serum or plasma phosphate measurement (mass/volume) 2.8 mg/dL 2.3-4.7 Magnesium - 12/26/18 17:30 Magnesium 2.1 mg/dL 1.8-2.4 Blood manual differential performed dete ction - 12/26/18 17:30 Blood monocytes/100 leukocytes 2 % NRG Manual blood segmented neutrophils/100 leukocytes 91 % NRG Blood band neutrophils/100 leukocytes 0 % NRG Manual blood lymphocytes/100 leukocytes 6 % NRG Manual eosinophils/100 leukocytes in nose 0 % NRG Manual blood basophils/100 leukocytes 1 % NRG Blood erythrocyte morphology finding identification NORMAL NRG Sputum Gram stain - 12/27/18 03:00 Sputum Gram stain relevent, interpret with caution . [facility] Bacterial sputum culture - 12/27/18 03:0 0 QUANTITY OF GROWTH . NR Bacterial sputum culture USUAL RESP NRG Complete blood count (CBC) with automate d white blood cell (WBC) differential - 12/27/18 03:14 Blood leukocytes automated count (number/volume) 6.7 10*3/uL 4.3-11.0 Blood erythrocytes automated count (number/volume) 4.82 10*6/uL 4.35-5.85 Venous blood hemoglobin measurement (mass/volume) 14.9 g/dL 13.3-17.7 Blood hematocrit (volume fraction) 44 % 40-54 Automated erythrocyte mean corpuscular volume 92 [ foz_us] 80-99 Automated erythrocyte mean corpuscular h emoglobin (mass per erythrocyte) 31 pg 25-34 Automated erythrocyte mean corpuscular h emoglobin concentration measurement (mass/volume) 34 g/dL 32-36 Automated erythrocyte distribution width ratio 13. 8 % 10.0- 14.5 Automated blood platelet count (count/volume) 172 10*3/uL 130-400 Automated blood platelet mean volume measurement 10.4 [foz_us] 7.4-10.4 Automated blood neutrophils/100 leukocytes 89 % 42-75 Automated blood lymphocytes/100 leukocytes 9 % 12-44 Blood monocytes/100 leukocytes 2 % 0-12 Automated blood eosinophils/100 leukocytes 0 % 0-10 Automated blood basophils/100 leukocytes 0 % 0-10 Blood neutrophils automated count (number/volume) 6.0 10*3 1.8-7.8 Blood lymphocytes automated count (number/volume) 0.6 10*3 1.0-4.0 Blood monocytes automated count (number/volume) 0. 1 10*3 0.0-1.0 Automated eosinophil count 0.0 10*3/uL 0 .0-0.3 Automated blood basophil count (count/volume) 0.0 10*3/uL 0.0-0.1 Whole blood basic metabolic panel - 12/02 05/18 03:14 Serum or plasma sodium measurement (moles/volume) 139 mmol/L 135-145 Serum or plasma potassium measurement (moles/volume) 3.8 mmol/L 3.6-5.0 Serum or plasma chloride measurement (moles/volume) 105 mmol/L 98-107 Carbon dioxide 20 mmol/L 21-32 Serum or plasma anion gap determination (moles/volume) 14 mmol/L 5-14 Serum or plasma urea nitrogen measurement (mass/volume ) 15 mg/dL 7-18 Serum or plasma creatinine measurement (mass/volume) 0.96 mg/dL 0.60-1.30 Serum or plasma urea nitrogen/creatinine mass ratio 16 NRG Serum or plasma creatinine measurement w ith calculation of estimated glomerular filtration rate > NRG Serum or plasma glucose measurement (mass/volume) 228 mg/dL 70-105 Serum or plasma calcium measurement (mass/volume) 9.1 mg/dL 8.5-10.1 Serum or plasma phosphate measurement (m ass/volume) - 12/27/18 03:14 Serum or plasma phosphate measurement (mass/volume) 2.5 mg/dL 2.3-4.7 Magnesium - 12/27/18 03:14 Magnesium 2.4 mg/dL 1.8-2.4 Complete blood count (CBC) with automate d white blood cell (WBC) differential - 12/28/18 03:50 Blood leukocytes automated count (number/volume) 14.0 10*3/uL 4.3-11.0 Blood erythrocytes automated count (number/volume) 4.28 10*6/uL 4.35-5.85 Venous blood hemoglobin measurement (mass/volume) 13.5 g/dL 13.3-17.7 Blood hematocrit (volume fraction) 40 % 40-54 Automated erythrocyte mean corpuscular volume 93 [ foz_us] 80-99 Automated erythrocyte mean corpuscular h emoglobin (mass per erythrocyte) 32 pg 25-34 Automated erythrocyte mean corpuscular h emoglobin concentration measurement (mass/volume) 34 g/dL 32-36 Automated erythrocyte distribution width ratio 14. 5 % 10.0- 14.5 Automated blood platelet count (count/volume) 159 10*3/uL 130-400 Automated blood platelet mean volume measurement 10.6 [foz_us] 7.4-10.4 Automated blood neutrophils/100 leukocytes 95 % 42-75 Automated blood lymphocytes/100 leukocytes 2 % 12-44 Blood monocytes/100 leukocytes 3 % 0-12 Automated blood eosinophils/100 leukocytes 0 % 0-10 Automated blood basophils/100 leukocytes 0 % 0-10 Blood neutrophils automated count (number/volume) 13.3 10*3 1.8-7.8 Blood lymphocytes automated count (number/volume) 0.3 10*3 1.0-4.0 Blood monocytes automated count (number/volume) 0. 4 10*3 0.0-1.0 Automated eosinophil count 0.0 10*3/uL 0 .0-0.3 Automated blood basophil count (count/volume) 0.0 10*3/uL 0.0-0.1 Whole blood basic metabolic panel - 12/02 06/18 03:50 Serum or plasma sodium measurement (moles/volume) 140 mmol/L 135-145 Serum or plasma potassium measurement (moles/volume) 4.4 mmol/L 3.6-5.0 Serum or plasma chloride measurement (moles/volume) 108 mmol/L 98-107 Carbon dioxide 21 mmol/L 21-32 Serum or plasma anion gap determination (moles/volume) 11 mmol/L 5-14 Serum or plasma urea nitrogen measurement (mass/volume ) 16 mg/dL 7-18 Serum or plasma creatinine measurement (mass/volume) 0.86 mg/dL 0.60-1.30 Serum or plasma urea nitrogen/creatinine mass ratio 19 NRG Serum or plasma creatinine measurement w ith calculation of estimated glomerular filtration rate > NRG Serum or plasma glucose measurement (mass/volume) 185 mg/dL 70-105 Serum or plasma calcium measurement (mass/volume) 8.9 mg/dL 8.5-10.1 Serum or plasma phosphate measurement (m ass/volume) - 12/28/18 03:50 Serum or plasma phosphate measurement (mass/volume) 2.2 mg/dL 2.3-4.7 Magnesium - 12/28/18 03:50 Magnesium 2.4 mg/dL 1.8-2.4 Complete blood count (CBC) with automate d white blood cell (WBC) differential - 12/29/18 03:50 Blood leukocytes automated count (number/volume) 11.9 10*3/uL 4.3-11.0 Blood erythrocytes automated count (number/volume) 4.38 10*6/uL 4.35-5.85 Venous blood hemoglobin measurement (mass/volume) 13.5 g/dL 13.3-17.7 Blood hematocrit (volume fraction) 41 % 40-54 Automated erythrocyte mean corpuscular volume 94 [ foz_us] 80-99 Automated erythrocyte mean corpuscular h emoglobin (mass per erythrocyte) 31 pg 25-34 Automated erythrocyte mean corpuscular h emoglobin concentration measurement (mass/volume) 33 g/dL 32-36 Automated erythrocyte distribution width ratio 14. 3 % 10.0- 14.5 Automated blood platelet count (count/volume) 148 10*3/uL 130-400 Automated blood platelet mean volume measurement 10.9 [foz_us] 7.4-10.4 Automated blood neutrophils/100 leukocytes 91 % 42-75 Automated blood lymphocytes/100 leukocytes 5 % 12-44 Blood monocytes/100 leukocytes 5 % 0-12 Automated blood eosinophils/100 leukocytes 0 % 0-10 Automated blood basophils/100 leukocytes 0 % 0-10 Blood neutrophils automated count (number/volume) 10.8 10*3 1.8-7.8 Blood lymphocytes automated count (number/volume) 0.6 10*3 1.0-4.0 Blood monocytes automated count (number/volume) 0. 6 10*3 0.0-1.0 Automated eosinophil count 0.0 10*3/uL 0 .0-0.3 Automated blood basophil count (count/volume) 0.0 10*3/uL 0.0-0.1 Sputum Gram stain - 01/03/19 10:20 Sputum Gram stain No bacteria seen NRG Mycobacterium species detection by organ ism specific culture - 01/03/19 10:20 Bacteria identification in bronchial spe cimen by aerobe culture - 01/03/19 10:20 QUANTITY OF GROWTH . NRG Bacteria identification in bronchial specimen by aerob e culture USUAL RESP NRG FTX;REPORTABLE 6,000 CFU/ML NRG C FUNGUS SPUTUM FLUID TISSUE - 01/03/19 10:20 FUNGUS REPORT NO FUNGUS GROWTH OBSERVED NRG TSH w/ FREE T4 - 10/25/19 10:46 TSH 0.65 mIU/L 0.40-4.50 T4, FREE 1.0 ng/dL 0.8-1.8 LIPID PANEL - 10/25/19 10:46 CHOLESTEROL, TOTAL 235 mg/dL <200 HDL CHOLESTEROL 86 mg/dL >40 TRIGLYCERIDES 162 mg/dL <150 LDL-CHOLESTEROL 121 mg/dL (calc) NRG CHOL/HDLC RATIO 2.7 (calc) <5.0 NON HDL CHOLESTEROL 149 mg/dL (calc) <13 0 CMP - 10/25/19 10:46 GLUCOSE 96 mg/dL 65-99 UREA NITROGEN (BUN) 20 mg/dL 7-25 CREATININE 1.09 mg/dL 0.70-1.33 eGFR NON-AFR. HAITIAN 74 mL/min/1.73m2 > OR = 60 eGFR 86 mL/min/1.73m2 > OR = 60 BUN/CREATININE RATIO NOT APPLICABLE (calc) 6-22 SODIUM 141 mmol/L 135-146 POTASSIUM 3.7 mmol/L 3.5-5.3 CHLORIDE 101 mmol/L 98-110 CARBON DIOXIDE 30 mmol/L 20-32 CALCIUM 10.5 mg/dL 8.6-10.3 PROTEIN, TOTAL 7.6 g/dL 6.1-8.1 ALBUMIN 4.7 g/dL 3.6-5.1 GLOBULIN 2.9 g/dL (calc) 1.9-3.7 ALBUMIN/GLOBULIN RATIO 1.6 (calc) 1.0-2. 5 BILIRUBIN, TOTAL 1.3 mg/dL 0.2-1.2 ALKALINE PHOSPHATASE 69 U/L 40-115 AST 24 U/L 10-35 ALT 24 U/L 9-46 CBC - 10/25/19 10:46 WHITE BLOOD CELL COUNT 7.5 Thousand/uL 3 .8-10.8 RED BLOOD CELL COUNT 5.16 Million/uL 4.2 0-5.80 HEMOGLOBIN 17.8 g/dL 13.2-17.1 HEMATOCRIT 51.4 % 38.5-50.0 MCV 99.6 fL 80.0-100.0 MCH 34.5 pg 27.0-33.0 MCHC 34.6 g/dL 32.0-36.0 RDW 13.7 % 11.0-15.0 PLATELET COUNT 140 Thousand/uL 140-400 MPV 11.3 fL 7.5-12.5 ABSOLUTE NEUTROPHILS 5678 cells/uL 1500- 7800 ABSOLUTE LYMPHOCYTES 1140 cells/uL 850-3 900 ABSOLUTE MONOCYTES 398 cells/uL 200-950 ABSOLUTE EOSINOPHILS 263 cells/uL 15-500 ABSOLUTE BASOPHILS 23 cells/uL 0-200 NEUTROPHILS 75.7 % NRG LYMPHOCYTES 15.2 % NRG MONOCYTES 5.3 % NRG EOSINOPHILS 3.5 % NRG BASOPHILS 0.3 % NRG HEPATITIS PROFILE - 12/06/19 09:11 HEPATITIS A IGM NON-REACTIVE NON-REACTI VE HEPATITIS B SURFACE ANTIGEN NON-REACTIVE NON-REACTIVE HEPATITIS B CORE ANTIBODY (IGM) NON-REACTIVE NON-REACTIVE HEPATITIS C ANTIBODY REACTIVE NON-REACT ANIBAL SIGNAL TO CUT-OFF 25.50 <1.00 Complete blood count (CBC) with automate d white blood cell (WBC) differential - 12/31/19 17:29 Blood leukocytes automated count (number/volume) 4.5 10*3/uL 4.3-11.0 Blood erythrocytes automated count (number/volume) 4.37 10*6/uL 4.35-5.85 Venous blood hemoglobin measurement (mass/volume) 14.3 g/dL 13.3-17.7 Blood hematocrit (volume fraction) 41 % 40-54 Automated erythrocyte mean corpuscular volume 94 [ foz_us] 80-99 Automated erythrocyte mean corpuscular h emoglobin (mass per erythrocyte) 33 pg 25-34 Automated erythrocyte mean corpuscular h emoglobin concentration measurement (mass/volume) 35 g/dL 32-36 Automated erythrocyte distribution width ratio 13. 6 % 10.0- 14.5 Automated blood platelet count (count/volume) 118 10*3/uL 130-400 Automated blood platelet mean volume measurement 10.3 [foz_us] 7.4-10.4 Automated blood neutrophils/100 leukocytes 66 % 42-75 Automated blood lymphocytes/100 leukocytes 22 % 12-44 Blood monocytes/100 leukocytes 12 % 0-12 Automated blood eosinophils/100 leukocytes 1 % 0-10 Automated blood basophils/100 leukocytes 0 % 0-10 Blood neutrophils automated count (number/volume) 2.9 10*3 1.8-7.8 Blood lymphocytes automated count (number/volume) 1.0 10*3 1.0-4.0 Blood monocytes automated count (number/volume) 0. 5 10*3 0.0-1.0 Automated eosinophil count 0.0 10*3/uL 0 .0-0.3 Automated blood basophil count (count/volume) 0.0 10*3/uL 0.0-0.1 Blood lactic acid measurement (moles/vol ume) - 12/31/19 17:29 Blood lactic acid measurement (moles/volume) 1.80 mmol/L 0.50-2.00 Comprehensive metabolic panel - 12/31/19 17:29 Serum or plasma sodium measurement (moles/volume) 132 mmol/L 135-145 Serum or plasma potassium measurement (moles/volume) 3.8 mmol/L 3.6-5.0 Serum or plasma chloride measurement (moles/volume) 96 mmol/L 98-107 Carbon dioxide 25 mmol/L 21-32 Serum or plasma anion gap determination (moles/volume) 11 mmol/L 5-14 Serum or plasma urea nitrogen measurement (mass/volume ) 8 mg/dL 7-18 Serum or plasma creatinine measurement (mass/volume) 0.99 mg/dL 0.60-1.30 Serum or plasma urea nitrogen/creatinine mass ratio 8 NRG Serum or plasma creatinine measurement w ith calculation of estimated glomerular filtration rate > NRG Serum or plasma glucose measurement (mass/volume) 95 mg/dL 70-105 Serum or plasma calcium measurement (mass/volume) 8.6 mg/dL 8.5-10.1 Serum or plasma total bilirubin measurement (mass/volu me) 0.8 mg/dL 0.1-1.0 Serum or plasma alkaline phosphatase zak surement (enzymatic activity/volume) 55 U/L 40-136 Serum or plasma aspartate aminotransfera se measurement (enzymatic activity/volume) 171 U/L 5-34 Serum or plasma alanine aminotransferase measurement (enzymatic activity/volume) 130 U/L 0-55 Serum or plasma protein measurement (mass/volume) 6.8 g/dL 6.4-8.2 Serum or plasma albumin measurement (mass/volume) 4.2 g/dL 3.2-4.5 CALCIUM CORRECTED 8.4 mg/dL 8.5-10.1 Serum or plasma troponin i.cardiac measu rement (mass/volume) - 12/31/19 17:29 Serum or plasma troponin i.cardiac measurement (mass/v olume) < ng/mL <0.028 Serum or plasma lithium measurement (mol es/volume) - 12/31/19 17:29 BNP PT 16.5 pg/mL <100.0 Influenza virus A and B antigen detectio n - 12/31/19 17:29 FLU RESULT NEGATIVE FOR INFLUENZA A AND B ANTIGENS BY IA NRG Serum or plasma ethanol measurement (mas s/volume) - 12/31/19 17:29 Serum or plasma ethanol measurement (mass/volume) 283 mg/dL <10 Bacterial blood culture - 12/31/19 17:29 Bacterial blood culture NG NRG Bacterial blood culture - 12/31/19 17:38 Bacterial blood culture NG NRG COVID-19 ([facility]) - 02/06/20 15:44 PATIENT SYMPTOMATIC? NOT GIVEN NRG SOURCE: NOT GIVEN NRG OVERALL RESULT: NOT DETECTED NOT DETE CTED SARS-CoV-2 RNA: NEGATIVE NEGATIVE VALDOVINOS-SARS RNA: NEGATIVE NEGATIVE Complete blood count (CBC) with automate d white blood cell (WBC) differential - 03/14/20 15:05 Blood leukocytes automated count (number/volume) 4.9 10*3/uL 4.3-11.0 Blood erythrocytes automated count (number/volume) 4.54 10*6/uL 4.35-5.85 Venous blood hemoglobin measurement (mass/volume) 14.9 g/dL 13.3-17.7 Blood hematocrit (volume fraction) 42 % 40-54 Automated erythrocyte mean corpuscular volume 93 [ foz_us] 80-99 Automated erythrocyte mean corpuscular h emoglobin (mass per erythrocyte) 33 pg 25-34 Automated erythrocyte mean corpuscular h emoglobin concentration measurement (mass/volume) 35 g/dL 32-36 Automated erythrocyte distribution width ratio 13. 5 % 10.0- 14.5 Automated blood platelet count (count/volume) 74 1 0*3/uL 130-400 Automated blood platelet mean volume measurement 11.5 [foz_us] 7.4-10.4 Automated blood neutrophils/100 leukocytes 71 % 42-75 Automated blood lymphocytes/100 leukocytes 13 % 12-44 Blood monocytes/100 leukocytes 16 % 0-12 Automated blood eosinophils/100 leukocytes 0 % 0-10 Automated blood basophils/100 leukocytes 0 % 0-10 Blood neutrophils automated count (number/volume) 3.5 10*3 1.8-7.8 Blood lymphocytes automated count (number/volume) 0.6 10*3 1.0-4.0 Blood monocytes automated count (number/volume) 0. 8 10*3 0.0-1.0 Automated eosinophil count 0.0 10*3/uL 0 .0-0.3 Automated blood basophil count (count/volume) 0.0 10*3/uL 0.0-0.1 Comprehensive metabolic panel - 03/14/20 15:05 Serum or plasma sodium measurement (moles/volume) 131 mmol/L 135-145 Serum or plasma potassium measurement (moles/volume) 3.7 mmol/L 3.6-5.0 Serum or plasma chloride measurement (moles/volume) 92 mmol/L 98-107 Carbon dioxide 22 mmol/L 21-32 Serum or plasma anion gap determination (moles/volume) 17 mmol/L 5-14 Serum or plasma urea nitrogen measurement (mass/volume ) 8 mg/dL 7-18 Serum or plasma creatinine measurement (mass/volume) 0.97 mg/dL 0.60-1.30 Serum or plasma urea nitrogen/creatinine mass ratio 8 NRG Serum or plasma creatinine measurement w ith calculation of estimated glomerular filtration rate > NRG Serum or plasma glucose measurement (mass/volume) 167 mg/dL 70-105 Serum or plasma calcium measurement (mass/volume) 10.0 mg/dL 8.5-10.1 Serum or plasma total bilirubin measurement (mass/volu me) 2.1 mg/dL 0.1-1.0 Serum or plasma alkaline phosphatase zak surement (enzymatic activity/volume) 64 U/L 40-136 Serum or plasma aspartate aminotransfera se measurement (enzymatic activity/volume) 91 U/L 5-34 Serum or plasma alanine aminotransferase measurement (enzymatic activity/volume) 94 U/L 0-55 Serum or plasma protein measurement (mass/volume) 8.4 g/dL 6.4-8.2 Serum or plasma albumin measurement (mass/volume) 4.9 g/dL 3.2-4.5 Serum or plasma troponin i.cardiac measu rement (mass/volume) - 03/14/20 15:05 Serum or plasma troponin i.cardiac measurement (mass/v olume) 0.035 ng/mL <0.028 Blood lactic acid measurement (moles/vol ume) - 03/14/20 15:05 Blood lactic acid measurement (moles/volume) 2.48 mmol/L 0.50-2.00 Ammonia - 03/14/20 15:05 Ammonia 37 umol/L 11-32 PT panel in platelet poor plasma by coag ulation assay - 03/14/20 15:05 Prothrombin time (PT) in platelet poor plasma by coagu lation assay 11.7 s 12.2-14.7 INR in platelet poor plasma or blood by coagulation as say 0.8 0.8-1.4 Serum or plasma ethanol measurement (mas s/volume) - 03/14/20 15:05 Serum or plasma ethanol measurement (mass/volume) < mg/dL <10 Capillary blood glucose measurement by g lucometer (mass/volume) - 03/14/20 15:06 Capillary blood glucose measurement by glucometer (mas s/volume) 161 mg/dL 70-110 Arterial blood gas measurement - 0 15:10 Blood pCO2 42 mm[Hg] 35-45 Blood pO2 44 mm[Hg] 79-93 Arterial blood bicarbonate measurement (moles/volume) 28 mmol/L 23-27 Arterial blood base excess by calculation 3.3 mmol /L -2.5-2.5 Arterial blood oxygen saturation measurement 63 % 94-100 * Inhaled oxygen flow rate RA NRG Arterial blood pH measurement with patient temperature correction 7.43 7.37-7.43 Arterial blood carbon dioxide, total measurement (mole s/volume) 28.8 mmol/L 21.0-31.0 Body site RR NRG Assessment of wrist artery patency prior to arterial p uncture YES-POS NRG Setting of ventilation mode NO NR G Measurement of body temperature 97.2 NRG Arterial blood gas measurement - 0 15:28 Blood pCO2 38 mm[Hg] 35-45 Blood pO2 92 mm[Hg] 79-93 Arterial blood bicarbonate measurement (moles/volume) 26 mmol/L 23-27 Arterial blood base excess by calculation 2.1 mmol /L -2.5-2.5 Arterial blood oxygen saturation measurement 97 % 94-100 * Inhaled oxygen flow rate 2L NRG Arterial blood pH measurement with patient temperature correction 7.44 7.37-7.43 Arterial blood carbon dioxide, total measurement (mole s/volume) 27.2 mmol/L 21.0-31.0 Body site RR NRG Assessment of wrist artery patency prior to arterial p uncture YES-POS NRG Setting of ventilation mode NO NR G Measurement of body temperature 97.2 NRG Serum or plasma lactate measurement (mol es/volume) - 03/14/20 16:58 Serum or plasma lactate measurement (moles/volume) 1.58 mmol/L 0.50-2.00 Serum or plasma troponin i.cardiac measu rement (mass/volume) - 03/14/20 17:06 Serum or plasma troponin i.cardiac measurement (mass/v olume) 0.031 ng/mL <0.028 Encounters ACCT No. Visit Date/Time Discharge Status Pt. Type Provider Facility Loc./Unit Complaint [id number] 06/21/2017 09:09:00 Document Registration [id number] 02/07/2020 13:40:00 02/07/2020 23:59:5 9 [id number] 02/06/2020 14:40:00 Document Registration [id number] 12/06/2019 09:00:00 Document Registration [id number] 10/25/2019 10:00:00 Document Registration [id number] 11/14/2019 12:49:00 00:01:00 DIS Outpatient SALAS MEJIA MD, V [facility] ONC [id number] 12/31/2019 17:23:00 19:54:00 DIS Outpatient BRANDON WALTON ADMINISTRATIVE SECRETARY [facility] ER DIZZY,FALLING,SOA [id number] 12/11/2019 13:45:00 23:59:59 CLS Preadmit ISABELA WOOTEN APRN [facility] RT COPD,SHEEZING,OBESITY,DYSPNEA,LUNG CA [id number] 11/13/2019 13:53:00 23:59:59 CLS Outpatient SALAS MEJIA MD, V [facility] RAD LUNG CA [id number] 05/09/2019 12:36:00 00:01:00 DIS Outpatient SALAS MEJIA MD, V [facility] ONC [id number] 06/04/2019 09:30:00 23:59:59 CLS Preadmit ISABELA WOOTEN APRN [facility] PULM LUNG CANCER,WHE EZING [id number] 03/05/2019 13:05:00 00:01:00 DIS Outpatient ISABELA WOOTEN APRN [facility] PULM LUNG CANCER,WHE EZING [id number] 04/17/2019 09:49:00 23:59:59 CLS Outpatient ISABELA WOOTEN APRN [facility] RAD COPD,WHEEZING,L SHANNAN CA [id number] 12/20/2018 14:41:00 00:01:00 DIS Outpatient SALAS MEJIA MD, V [facility] ONC [id number] 2019 14:15:00 23:59:59 CLS Outpatient ISABELA WOOTEN APRN [facility] RT LUNG CANCER [id number] 01/03/2019 07:51:00 23:59:59 CLS Outpatient CAROLYN MONDRAGON DO [facility] ENDO LUNG CANCER/COPD/WHEEZI NG [id number] 12/26/2018 16:39:00 15:25:00 DIS Inpatient KO , TOMI V [facility] 4TH PNEUMOTHORAX [id number] 12/26/2018 12:03:00 23:59:59 CLS Outpatient CAROLYN MONDRAGON DO [facility] PREOP EBUS [id number] 12/26/2018 11:27:00 23:59:59 CLS Outpatient ISABELA WOOTEN APRN [facility] RAD COPD [id number] 12/13/2018 08:18:00 14:35:00 DIS Outpatient NORMAN RAE ELECTRICIAN YARD [facility] SDC LUNG MASS [id number] 12/05/2018 10:10:00 23:59:59 CLS Outpatient NORMAN RAE ELECTRICIAN YARD [facility] RAD LUNG MASS RIGHT [id number] 11/24/2018 12:20:00 23:59:59 CLS Outpatient NORMAN RAE ELECTRICIAN YARD [facility] RAD LUNG MASS [id number] 07/22/2017 15:52:00 17:10:00 DIS Emergency BRANDON WALTON ADMINISTRATIVE SECRETARY [facility] ER CP/L ARM NUMBNESS/WEAKN ESS [id number] 05/12/2020 11:15:00 P EN SALAS Rice MD [facility] RAD LUNG CA [id number] 03/14/2020 15:14:00 Document Registration
[2020-03-14 18:38] VITALS: BP 141/98
== END 2020-03-14 18:35 | disposition home or self-care (01) ==
LOC: EDUNIT# 14:52 → ER 14:56
DX: J44.9 Chronic obstructive pulmonary disease, unspecified (principal); I10 Essential (primary) hypertension; R19.7 Diarrhea, unspecified; F41.9 Anxiety disorder, unspecified; F32.9 Major depressive disorder, single episode, unspecified; Z85.118 Personal history of other malignant neoplasm of bronchus and lung; Z79.52 Long term (current) use of systemic steroids; Z77.22 Contact with and (suspected) exposure to environmental tobacco smoke (acute) (chronic); Z82.49 Family history of ischemic heart disease and other diseases of the circulatory system
CPT/HCPCS: 36415; 71275; 74177; 80053; 80320; 82140; 82805; 82962; 83605; 84484; 85025; 85610; 87040; 93005; 96361; 96374; 96375

== ENCOUNTER → 2020-05-12 | Outpatient (CLI) | payer MEDICAID, OTHER ==
[~2020-05-12] MED LIST changes: +CATHETER FLUSH 10 ML SYR IV PRN; +HOLD METFORMIN - RECEIVED CONTRAST 20 ML VIAL IV SCH; +IOHEXOL 350 MG/ML 100 ML (OMNIPAQUE 350) VIAL IV ONE
--- NOTE | 2020-05-12 14:40 | Diagnostic Imaging Report ---
PROCEDURE: CT chest with contrast, CT abdomen and pelvis with and without contrast. TECHNIQUE: Pre and post intravenous contrast axial imaging of the abdomen and pelvis and post contrast axial imaging of the chest were performed. Auto Exposure Controls were utilized during the CT exam to meet ALARA standards for radiation dose reduction. INDICATION: Lung carcinoma. COMPARISON: Correlation is made with prior CT from 03/14/2020. FINDINGS: CT chest: Postsurgical changes of right upper and right middle lobectomies are again seen. Postsurgical changes of the right hilum with multiple surgical clips are noted. There is some soft tissue at the right hilum just lateral to the ascending thoracic aorta. The soft tissue may be slightly more prominent on today's study when compared with prior exam, measuring 3.1 x 2.2 cm compared with 2.7 x 1.9 cm on prior. No axillary lymphadenopathy is detected. No definite mediastinal or left hilar lymphadenopathy is seen. There is no pericardial fluid. There is a very small right pleural effusion, stable. No pulmonary parenchymal abnormality is seen. No noncalcified masses identified. No osteolytic lesions are seen. IMPRESSION: 1. Postsurgical changes of right upper and right middle lobectomies. There is slightly prominent soft tissue at the right hilum which may be slightly more prominent on today's study. PET scan would be useful for further evaluation. 2. Stable small right pleural effusion. No pulmonary parenchymal abnormality is seen. CT abdomen and pelvis: The liver does show diffuse low density consistent with hepatic steatosis. No discrete liver mass is detected. Gallbladder is unremarkable. No biliary ductal dilatation is seen. The pancreas and spleen appear stable. Right adrenal gland is normal in size. There is left adrenal enlargement, similar to prior. The kidneys are unremarkable. Aorta is non-aneurysmal. No central retroperitoneal or mesenteric lymphadenopathy is seen. The small and large bowel loops are normal caliber. There is no free fluid or fluid collection. No pelvic lymphadenopathy is seen. No osseous lesions are identified. IMPRESSION: Stable CT abdomen and pelvis when compared with exam from 03/14/2020. No abdominal or pelvic lymphadenopathy or evidence of metastatic disease is detected. Dictated by: Dictated on workstation # [id number]
== END ==
LOC: RAD 10:46
PROVIDERS: ATTEND Internal Medicine Hematology & Oncology
DX: C34.90 Malignant neoplasm of unspecified part of unspecified bronchus or lung (principal); J90 Pleural effusion, not elsewhere classified; Z98.890 Other specified postprocedural states; Z90.2 Acquired absence of lung [part of]
CPT/HCPCS: 71260; 74178

== ENCOUNTER 2020-05-26 10:37 | Outpatient (RCR) | payer MEDICAID, OTHER ==
[2020-05-12 10:51] LABS: BASOPHILS % (AUTO) 0 % (0-10); EOSINOPHILS % (AUTO) 0 % (0-10); HEMATOCRIT 45 % (40-54); HEMOGLOBIN 15.5 G/DL (13.3-17.7); LYMPHOCYTES # (AUTO) 1.2 X 10^3 (1.0-4.0); LYMPHOCYTES % (AUTO) 16 % (12-44); MEAN CORPUSCULAR HEMOGLOBIN 33 PG (25-34); MEAN CORPUSCULAR HGB CONC 34 G/DL (32-36); MEAN CORPUSCULAR VOLUME 96 FL (80-99); MEAN PLATELET VOLUME 10.5 FL (7.4-10.4); MONOCYTES # (AUTO) 0.8 X 10^3 (0.0-1.0); MONOCYTES % (AUTO) 10 % (0-12); NEUTROPHILS # (AUTO) 5.6 X 10^3 (1.8-7.8); NEUTROPHILS % (AUTO) 74 % (42-75); PLATELET COUNT 145 10^3/uL (130-400); WHITE BLOOD COUNT 7.6 10^3/uL (4.3-11.0)
[2020-05-12 11:15] LABS: ALBUMIN 4.2 GM/DL (3.2-4.5); BILIRUBIN,TOTAL 1.4 MG/DL (0.1-1.0); CALCIUM 9.8 MG/DL (8.5-10.1); CREATININE SERUM 1.26 MG/DL (0.60-1.30); POTASSIUM 3.2 MMOL/L (3.6-5.0); TOTAL PROTEIN 7.6 GM/DL (6.4-8.2)
[~2020-05-26 10:37] MED LIST changes: -CATHETER FLUSH 10 ML SYR IV PRN; -HOLD METFORMIN - RECEIVED CONTRAST 20 ML VIAL IV SCH; -IOHEXOL 350 MG/ML 100 ML (OMNIPAQUE 350) VIAL IV ONE
== END 2020-07-18 14:35 | disposition home or self-care (01) ==
LOC: ONC 10:37
PROVIDERS: ATTEND Internal Medicine Hematology & Oncology
DX: C34.11 Malignant neoplasm of upper lobe, right bronchus or lung (principal); J44.9 Chronic obstructive pulmonary disease, unspecified; E66.9 Obesity, unspecified; R06.2 Wheezing; Z72.0 Tobacco use
CPT/HCPCS: 80053; 85025; 99213